=== PATIENT | male | born 1965 | race Caucasian/White ===

== ENCOUNTER → 2016-12-16 | Outpatient (CLI) | payer MEDICARE, OTHER ==
[2016-01-28 23:41] VITALS: BP 151/70
[~2016-12-16] MED LIST: ALLO100T PO; BACL10TA PO; DOCU100C PO; GABA-586 PO; INSU100V13 SQ; LISI1TAB7 PO; METH10TA2 PO; MOVANTIK12.5 MG PO; OXYC-244 PO; OXYC-323 PO; POLY17PO5 PO; PREG75CA PO; TRAZ50TA15 PO
--- NOTE | 2016-12-17 01:41 | PAIN ---
DATE OF SERVICE: 12/16/2016 DIAGNOSES: 1. Chronic pain syndrome. 2. Cervical spondylosis with cervical radiculopathy. 3. Complex regional pain syndrome, bilateral upper extremities. 4. Myofascial pain. 5. Occipital neuralgia with spinal cord stimulator, cervical placement. HISTORY OF PRESENT ILLNESS: The patient is a 51-year-old male who returns for followup status post medication management with both methadone and oxycodone for breakthrough. The patient is also taking Lyrica and baclofen with good results. The patient reports he has had some difficulty with recent weather changes that we have been having with some increased pain in the base of the neck and shoulder, it is also causing him some headaches and had an episode where he had pain for about 2 days where he had to do nothing but just lie still until the pain got better in the base of the neck and head and shoulders, but it did once the weather changed again. The patient reports otherwise doing fairly well with medications, overall about 70-75% improvement without significant side effects with the medications. Reports still stabbing and burning pain in the base of the neck and shoulders, upper extremity as well as the low back. Also some pain that he attributes to arthritis in the knees bilaterally as he has been increasing his activity more recently in the last week or so at home. The patient reports it is a 5-6 on a scale of 10, reports no new motor or sensory deficits, no new bowel or bladder incontinence or other complaints. PHYSICAL EXAMINATION: VITAL SIGNS: The patient's blood pressure 132/69, pulse 64, respirations 18, temperature 98.4 degrees Fahrenheit, weight is 331 pounds. GENERAL: The patient is awake, alert, oriented, appropriate, very pleasant demeanor. HEENT: Shows normocephalic and atraumatic. Extraocular movements are intact, symmetrical. Oral cavity: Mucous membranes are moist and pink. Dentition is intact. NECK: Shows anterior throat supple without palpable lymphadenopathy noted. Swallow reflex is symmetrical. CHEST: Shows normal on inspection. Breath sounds are clear to auscultation bilaterally. HEART: Shows S1 and S2 clear. No murmurs are auscultated. ABDOMEN: Obese, soft, nontender, nondistended. No palpable organomegaly is noted. No new rebound or guarding demonstrated. BACK: Shows grossly midline spine with some tenderness in the cervical paraspinous musculature bilaterally in the middle and upper distribution as well as lower distribution in the superior medial and lateral trapezius. No specific radiation, but diffusely tender throughout the cervical paraspinous muscles and the trapezius muscles superiorly. The patient shows some limited rotational motion, especially with extension of the cervical spine, but good forward flexion. Right and left lateral rotation is about 45 degrees without significant pain reported. No trigger points are demonstrated. No radiation of pain in the upper extremities. EXTREMITIES: Upper extremities showed deep tendon reflexes 1+ in the biceps and triceps tendons and are equal. Motor exam is strong with paint prepper strength rated at 5/5. Also, biceps and triceps flexion are strong and equal and 5/5 bilaterally. Peripheral pulses are 2+, radial distribution. Upper extremities are warm and dry to touch, equal in color and appearance. PLAN: Options were discussed with the patient. At this time, the patient's old chart was reviewed as his current medication regimen and updated. Current review of systems is updated today as well. We will refill the patient's methadone as well as oxycodone, Lyrica and baclofen with instructions and side effects to be aware of discussed with each of the medications. The patient reports good adequate use of the spinal cord stimulator and keeping this charged and he reports good results with it as well, again not completely covering 100% of the pain, but does decrease the pain to a moderate extent. The patient will follow up in approximately 60 days. He was given 2-month prescription for the medications and he will follow up at that time as scheduled. MANASA ABBOTT MD DR: NICHOLE/sagar JOB#: [id number] / [id number]
== END | disposition home or self-care (01) ==
LOC: PNCL 09:57
PROVIDERS: ATTEND Anesthesiology
DX: M47.22 Other spondylosis with radiculopathy, cervical region (principal); G89.4 Chronic pain syndrome; G56.43 Causalgia of bilateral upper limbs; M79.1 Myalgia; M54.81 Occipital neuralgia
CPT/HCPCS: G0463

== ENCOUNTER → 2017-02-10 | Outpatient (CLI) | payer MEDICARE, OTHER ==
[2016-01-28 23:41] VITALS: BP 151/70
[~2017-02-10] MED LIST changes: +POLY17PO29 PO; -POLY17PO5 PO
--- NOTE | 2017-02-11 03:56 | PAIN ---
DATE OF SERVICE: 02/10/2017 PROGRESS NOTE FOR PAIN CLINIC DIAGNOSES: 1. Chronic pain syndrome. 2. Cervical spondylosis with cervical radiculopathy. 3. Complex regional pain syndrome, bilateral upper extremities. 4. Myofascial pain. 5. Occipital neuralgia. The patient is a 51-year-old male who returns for followup status post medication management with both methadone and oxycodone. Also taking Lyrica and baclofen. The patient reports he is doing fairly well, has been on a fairly stable regimen with the medications for an extended period of time, does well with them day to day, anywhere from a 6 to a 9 on a scale of 10. He has been increasing activity, more recently doing some gardening as well as building a chicken coop, which has increased his pain to a moderate extent. He is having to pace himself and do these things very slowly, but he is getting them done and enjoys being outside and doing these things even though he knows it does exacerbate his pain. The patient reports no new motor or sensory deficits or other complaints. Has had appropriate K-TRACS reporting today as well as appropriate urinalysis today. PHYSICAL EXAMINATION: VITAL SIGNS: The patient's blood pressure is /75, pulse 67, respirations are 18, temperature 98.3 degrees Fahrenheit, height is 6 feet 4 inches, weight 328 pounds. GENERAL: The patient is awake, alert, oriented and appropriate, very pleasant demeanor. HEENT: Head is normocephalic, atraumatic. Extraocular movements are intact and symmetrical. Oral cavity, his mucous membranes are moist and pink. Dentition is intact. NECK: Anterior throat without palpable lymphadenopathy. Swallow reflex is symmetrical. Posterior cervical musculature is firm, very tight and diffusely tender throughout the upper, middle, lower distribution, mainly in the middle and lower distribution of the paraspinous muscles of cervical distribution with some minor radiation into the lateral and superior trapezius, but previous exam. The patient shows limited rotational motion with extension, with pain reported as well as right and left lateral rotation to about 45 degrees with pain reported. CHEST: Normal on inspection. Breath sounds are clear to auscultation bilaterally. HEART: S1, S2, clear. No murmurs auscultated. ABDOMEN: Obese, soft, nontender, nondistended. No palpable organomegaly is noted. BACK: Spine grossly in the midline with thoracic and lumbar paraspinous musculature and curvatures. Diffuse tenderness in the upper thoracic paraspinous muscles as well as the superior trapezius and suprascapular regions, but without trigger points or radiation. Options were discussed with the patient. The patient's old chart was reviewed and his current medication regimen updated. Current review of systems updated today as well. We will refill the patient's methadone as well as oxycodone, Lyrica and baclofen with instructions, side effects to be aware of , a 2-month prescription. The patient has had appropriate K-TRACS reporting and appropriate urinalysis to date. We will review those today, renew narcotic contract as it is due for renewal also. The patient was given a copy. Policies were gone over with the patient and spouse once again. They verbalized understanding. The patient will follow up in approximately 2 months as scheduled. MAANSA ABBOTT MD DR: NICHOLE/sagar JOB#: [id number] / [id number]
== END | disposition home or self-care (01) ==
LOC: PNCL 11:21
PROVIDERS: ATTEND Anesthesiology
DX: M47.892 Other spondylosis, cervical region (principal); G56.43 Causalgia of bilateral upper limbs; G89.4 Chronic pain syndrome; M79.1 Myalgia; M54.81 Occipital neuralgia
CPT/HCPCS: 99212

== ENCOUNTER → 2017-04-07 | Outpatient (CLI) | payer OTHER ==
[2016-01-28 23:41] VITALS: BP 151/70
[~2017-04-07] MED LIST changes: +DOCU-150 PO; -DOCU100C PO; -OXYC-244 PO; +OXYC-327 PO
== END | disposition home or self-care (01) ==
LOC: PNCL 11:26
PROVIDERS: ATTEND Anesthesiology
DX: M47.22 Other spondylosis with radiculopathy, cervical region (principal); G90.513 Complex regional pain syndrome I of upper limb, bilateral; M54.81 Occipital neuralgia; G89.4 Chronic pain syndrome
CPT/HCPCS: 99212

== ENCOUNTER → 2017-06-02 | Outpatient (CLI) | payer OTHER ==
[2016-01-28 23:41] VITALS: BP 151/70
--- NOTE | 2017-06-03 06:15 | PAIN ---
DATE OF SERVICE: 06/02/2017 DIAGNOSES: 1. Chronic pain syndrome. 2. Cervical spondylosis, cervical radiculopathy and complex regional pain syndrome, bilateral upper extremities. 3. Myofascial pain. 4. Occipital neuralgia. HISTORY OF PRESENT ILLNESS: The patient is a 52-year-old male who returns for followup status post medication management with both methadone and Percocet for breakthrough. The patient reports he has been doing very well with very stable regimen with medication with abduction about 80% improvement with the medications. The patient reports no side effects of the medication as well, reports he has been increasing his activity as he generally does with doing things around the house as well as bowling and yard work, but he knows that he will have increased pain with some of these activities, generally does not tolerate it fairly well, is doing well with his spinal cord stimulator with good cervical distribution, stimulation and good stimulation quality with good rechargeability with his generator by his report. The patient reports no new motor or sensory deficits, no new bowel or bladder incontinence, no new side effects with medication. The patient rates his pain as a 10 on a scale of 10, it is worse at 6 on a scale 10 currently, is averaging about a 8. The patient reports as aching, sharp, dull, tight, tingling, burning, stabbing, radiating, can be severely constant with activity. The patient reports he sleeps well at night; however, does not awaken him from sleep. PHYSICAL EXAMINATION: VITAL SIGNS: The patient's blood pressure 148/81, pulse is 69, temperature is 98.2 degrees Fahrenheit, respirations 20, height is 6 feet 4 inches and weight is 328 pounds. GENERAL: The patient is awake, alert, oriented, appropriate, has a very pleasant demeanor. The patient is accompanied by his spouse. HEENT: Shows normocephalic, atraumatic. Extraocular movements are intact, symmetrical. Oral cavity, mucous membranes are moist and pink. Dentition is intact. NECK: Shows anterior throat supple without palpable lymphadenopathy noted. Swallow reflex is symmetrical. The patient's posterior cervical musculature shows some moderate tenderness with palpation in the inferior aspect of the cervical paraspinous musculature bilaterally with diffuse tenderness, but only diffusely without significant radiation. CHEST: Shows normal on inspection. Breath sounds clear to auscultation bilaterally. HEART: Shows S1 and S2 clear. ABDOMEN: Obese, soft, nontender, nondistended. BACK: Shows spine grossly in the midline. Normal appearing thoracic kyphosis and lumbar lordotic curvatures. Upper extremity showed deep tendon reflexes at 2+ in the biceps and triceps tendons. Motor exam is strong with dorsiflexion, extension, quadriceps and hamstring flexion as well as university manager strength, biceps and triceps flexion rated at 5/5 and equal. Options were discussed with the patient. The patient's old chart was reviewed as his current medication regimen updated. Current review of systems updated today as well and we will refill the patient's oxycodone as well as methadone with instructions side effects to be aware of, Lyrica and baclofen as patient does well with each of these. The patient was given instruction as well as side effects to be aware of each of these medications. Also encouraged to increase activity as tolerated, maintain watchful maintenance on his spinal cord stimulator as it is nearing a 10-year period on battery, but is charging well and patient reports good and adequate stimulation from it. We will have the patient return in approximately 2 months or sooner if necessary, was counseled as to return appointment as well. MANASA ABBOTT MD DR: NICHOLE/sagar JOB#: [id number] / [id number]
== END | disposition home or self-care (01) ==
LOC: PNCL 11:23
PROVIDERS: ATTEND Anesthesiology
DX: M47.892 Other spondylosis, cervical region (principal); M54.81 Occipital neuralgia; G89.4 Chronic pain syndrome; G56.43 Causalgia of bilateral upper limbs
CPT/HCPCS: 99212

== ENCOUNTER → 2017-07-28 | Outpatient (CLI) | payer OTHER ==
[2016-01-28 23:41] VITALS: BP 151/70
--- NOTE | 2017-07-28 17:42 | PAIN ---
DATE OF SERVICE: 07/28/2017 DIAGNOSES: 1. Chronic pain syndrome. 2. Cervicalgia with cervical radiculopathy. 3. Complex regional pain syndrome, bilateral upper extremities. 4. Myofascial pain with spinal cord stimulator therapy. HISTORY OF PRESENT ILLNESS: The patient is a 52-year-old male who returns for followup status post medication management with both methadone and Percocet, also taking Lyrica as well as baclofen. The patient reports he has been on a very stable regimen with these medicines. He reports that lately he has been "doing too much" with his activities increasing his pain in the base of his neck, shoulders, upper back, mid back as well as lower extremities, but he realizes that this is part of a consequence of his increased activity and has some increased pain. The patient reports his spinal cord stimulator has been working very well and is having good coverage, but has not completely relieved the pain, more like about 50-60%. The patient reports overall has about 75-80% improvement with the medications and the stimulator without any significant side effects. The patient reports occasional constipation, but only rarely and seems to do better when he is better hydrated. The patient reports no new motor or sensory deficits, no new bowel or bladder incontinence or other complaints. He has been on a very stable regimen as noted. The patient reports pain is a 10 on a scale of 10 at its worst, is 7 on average and 5 at least and is 5 today. The patient reports aching, sharp, tight, shooting, stabbing, burning, tingling, radiating, constant and severe pain all with increased intensity with increased activity as he has been deer hunting lately target shooting with his , which has been stressful on his pain situation. PAST MEDICAL HISTORY: Significant for osteoarthritis, hypertension, knee arthroscopy, ____ and spinal cord stimulator implantation. ALLERGIES: THE PATIENT IS ALLERGIC TO PENICILLIN, TAPE, ERYTHROMYCIN, AMITRIPTYLINE. MEDICATIONS: Celebrex, Robaxin, metformin, fish oil, gemfibrozil, lisinopril, potassium, baclofen, methadone and Percocet. REVIEW OF SYSTEMS: Updated today and is positive for those items mentioned in the history of present illness. It is complete, full and well documented on the patient's chart. PHYSICAL EXAMINATION: VITAL SIGNS: The patient's blood pressure is 143/83, pulse is 83, respirations 20, temperature 98.3 degrees Fahrenheit. Height is 6 feet 4 inches, weight is 336 pounds. GENERAL: The patient is awake, alert, oriented, appropriate, has very pleasant demeanor. HEENT: Head shows normocephalic, atraumatic. Extraocular movements are intact and symmetrical. Oral cavity, his mucous membranes are moist and pink. Dentition is intact. NECK: Shows anterior throat supple without palpable lymphadenopathy noted. Swallow reflex is symmetrical. CHEST: Shows normal on inspection. Breath sounds are clear to auscultation bilaterally. HEART: Shows S1 and S2 clear. No murmurs auscultated. ABDOMEN: Obese, soft, nontender, nondistended. No palpable organomegaly is noted. No rebound or guarding demonstrated. BACK: Shows spine grossly midline. The patient shows well-healed surgical scars from spinal cord stimulator implantation in the upper thoracic and lower cervical distribution as well as palpable spinal cord stimulator. The patient shows good rotational motion of the cervical spine with some tenderness with extension, but not with forward flexion. Right and left lateral rotations performed past 45 degrees, closer to 90 degrees bilaterally. The patient's low back shows some mild tenderness with palpation, but normal appearing thoracic kyphosis and lumbar lordotic curvature. Diffusely tender again in the paraspinous muscles bilaterally, but without radiation. EXTREMITIES: Upper extremities showed deep tendon reflexes 1+ in the biceps and triceps tendons. Motor exam is strong with energy management specialist strength with approximately 4 on a scale of 5 bilaterally, but equal and biceps and triceps flexion is 5/5 and strong and equal bilaterally. Peripheral pulses are 2+ in radial distribution. No peripheral edema is noted. Lower extremities showed deep tendon reflexes 1+ in the patellar and tendo calcaneus tendons are equal. Motor exam is strong with 5/5 dorsiflexion, extension, quadriceps and hamstring flexion. Peripheral pulses are 1+ posterior tibial and dorsalis pedis. No peripheral edema is noted in the lower extremities as well. Options were discussed with the patient. The patient's old chart was reviewed as his current medication regimen updated. Current review of systems updated today as well. We will refill the patient's methadone as well as Percocet, baclofen and Lyrica with instructions, side effects to be aware of discussed with each of his medications. Again, the patient has been on good and stable regimen, has had appropriate K-TRACS reporting to date and appropriate urinalysis. We will recheck urinalysis to date for random screening. It has been several months since his last one. The patient accepts this willingly. The patient was counseled as to activity level as well as being cautious with activities, but staying active at the same time with some stretching and strengthening exercises as well as light walking and exercising. MANASA ABBOTT MD DR: NICHOLE/sagar JOB#: [id number] / [id number]
== END | disposition home or self-care (01) ==
LOC: PNCL 11:15
PROVIDERS: ATTEND Anesthesiology
DX: M54.12 Radiculopathy, cervical region (principal); Z88.0 Allergy status to penicillin; I10 Essential (primary) hypertension
CPT/HCPCS: 99212

== ENCOUNTER → 2017-09-22 | Outpatient (CLI) | payer OTHER ==
[2016-01-28 23:41] VITALS: BP 151/70
--- NOTE | 2017-09-23 00:15 | PAIN ---
DATE OF SERVICE: 09/22/2017 PROGRESS NOTE FOR PAIN CLINIC DIAGNOSES: 1. Chronic pain syndrome. 2. Cervicalgia with cervical radiculopathy. 3. Complex regional pain syndrome, bilateral upper extremities. 4. Myofascial pain. HISTORY OF PRESENT ILLNESS: The patient is a 52-year-old male who returns for followup status post medication management with both methadone, Percocet, baclofen as well as Lyrica. The patient reports he is doing very well with this, has been on a very stable regimen, he has been on these medications for an extended period of time now. The patient has had appropriate K-TRACS reporting as well as urinalyses to date. The patient reports his pain is approximately 75% improved with the medications. He has been increasing his activity lately. He has been doing some hunting trips, also working at his property with some moving and lifting heavy objects and climbing and descending hills with increased pain, but the patient also walked to his appointment today approximately 5 miles very slowly, but likes to stay active and tries to keep as active as he can even though the pain is increased with this. The patient reports the pain is an 8 on a scale of 10 at its worst, is an 8 on average, is a 7 at its least and is an 8 today. The patient reports it is aching, sharp tight stabbing, burning, tingling with radiating pain, constant, base of the neck, posterior occipital region, middle, upper and lower back as well as bilateral knees, bilateral ankles and hands with aching and deep pain as well. The patient reports spinal cord stimulator however is working very well ____ pain better by about a 70% margin as well and the medication helps decrease this on top of the stimulator. The patient reports he is awakening from sleep from the pain usually in his neck and shoulders about every 5 hours, but he can reposition and get back to sleep or take pain medication to get back to rest as well. The patient reports no new motor or sensory deficits. No new bowel or bladder incontinence or other complaints. PHYSICAL EXAMINATION: VITAL SIGNS: The patient's blood pressure 160/89, pulse 79, respirations 18, temperature 98.2 degrees Fahrenheit, height 6 feet 2 inches, weight is 339 pounds. GENERAL: The patient is awake, alert, oriented, appropriate, very pleasant demeanor. HEENT: Head shows normocephalic, atraumatic. Extraocular movements are intact, symmetrical. Oral cavity: Mucous membranes moist and pink. Dentition is intact. NECK: Shows anterior throat supple without palpable lymphadenopathy noted. Swallow reflex symmetrical. Posterior cervical musculature shows moderate tenderness throughout the upper, middle, lower distribution of paraspinous musculature, but is only diffusely tender without trigger points, without radiation. The patient shows some guarded rotational motion of cervical spine, both laterally as well as extension and flexion, but performances fully just slow and deliberate and guarded. CHEST: Shows normal on inspection. Breath sounds are clear to auscultation bilaterally. HEART: Shows S1, S2 clear. No murmurs auscultated. ABDOMEN: Soft, nontender, nondistended. No palpable organomegaly. No rebound or guarding demonstrated. MUSCULOSKELETAL: The patient's back shows spine grossly in the midline with some moderate tenderness of the trapezius as well as the thoracic paraspinous. Lumbar paraspinous muscle shows symmetrical with moderate tenderness throughout the upper, middle, lower distribution, but good rotational motion laterally as well as extension and flexion. No tenderness over the sacrum or sacroiliac regions. The patient's extremities show upper extremity deep tendon reflexes 2+ in the biceps and triceps tendons. Lower extremities are 1+ patellar and tendo calcaneus tendons. Motor exam is strong with management lecturer strength rated at 5/5. Lower extremities show dorsiflexion, extension at 5/5 and equal. Peripheral pulses are 2+ radial, 1+ posterior tibial. No peripheral edema is noted bilaterally in the upper or lower extremities. Options were discussed with the patient. The patient's old chart was reviewed as well as his current medication list was updated as was the patient's review of systems today. PLAN: We will refill the patient's methadone as well as Percocet and baclofen with instructions side effects to be aware of. The patient also will have new narcotic contract signed and given a copy of that today. The patient was given instruction as well as side effects to be aware of his medications. He will follow up in approximately 2 months. He was given a 60-day supply with instructions, side effects to be aware of. Again, the patient has had appropriate K-TRACS reporting as well as urinalyses to date and will follow up in approximately 2 months as scheduled. MANASA ABBOTT MD DR: Jasmina JOB#: [id number] / [id number]
== END | disposition home or self-care (01) ==
LOC: PNCL 12:23
PROVIDERS: ATTEND Anesthesiology
DX: G56.43 Causalgia of bilateral upper limbs (principal)
CPT/HCPCS: 99212

== ENCOUNTER → 2017-10-03 | Outpatient (CLI) | payer OTHER | END | disposition home or self-care (01) | LOC: PNCL 13:04 | DX: M54.12 Radiculopathy, cervical region (principal); M54.81 Occipital neuralgia | CPT/HCPCS: 99212 ==

== ENCOUNTER 2017-11-03 10:34 | Day surgery (SDC) | payer OTHER ==
[2017-11-03] MEDS: IV RINGERS,LACTATED 1000ML 1,000 ML IV (07:00)
[~2017-11-03 10:34] MED LIST changes: -ALLO100T PO; +BACITRACIN 50,000 UNIT in IV NORMAL SALINE 500ML BAG 500 ML IRR; -BACL10TA PO; -DOCU-150 PO; -GABA-586 PO; +HYDROmorphone 2 MG/ML VIAL IV; -INSU100V13 SQ; +LIDOCAINE 1% PF 2 ML VIAL. ID; -LISI1TAB7 PO; -METH10TA2 PO; +MORPHINE SULFATE 2 MG/ML DISP.SYRIN. IV; -MOVANTIK12.5 MG PO; -OXYC-323 PO; -OXYC-327 PO; -POLY17PO29 PO; -PREG75CA PO; +PROCHLORPERAZINE 10 MG/2 ML VIAL. IV; -TRAZ50TA15 PO; +fentaNYL PF VIAL 100 MCG/2 ML VIAL IV
[2017-11-03 11:16] LABS: ADD MAN DIFF? NO
[2017-11-03 11:18] LABS: BASO # 0.1 x10^3/uL (0.0-0.2); BASO % 1 % (0-3); EOS # 0.1 x10^3/uL (0.0-0.7); EOS % 2 % (0-3); HEMATOCRIT 41.4 % (39.0-53.0); HEMOGLOBIN 13.8 g/dL (13.0-17.5); LYMPH # 1.7 x10^3/uL (1.0-4.8); LYMPH % 23 % (24-48); MEAN CORPUSCULAR HEMOGLOBIN 29 pg (25-35); MEAN CORPUSCULAR HGB CONC 33 g/dL (31-37); MEAN CORPUSCULAR VOLUME 88 fL (79-100); MONO # 0.6 x10^3/uL (0.0-1.1); MONO % 8 % (0-9); NEUT # 4.9 x10^3uL (1.8-7.7); NEUT % 66 % (31-73); PLATELET COUNT 171 x10^3/uL (140-400); WHITE BLOOD COUNT 7.4 x10^3/uL (4.0-11.0)
[2017-11-03] MEDS ORDERED: PROPOFOL 20 ML IV ×2 (11:26→12:59)
[2017-11-03] MEDS ORDERED: SUCCINYLCHOLINE 200 MG/10 ML VIAL. (11:26)
[2017-11-03 11:36] LABS: ANION GAP 7 (6-14); BLOOD UREA NITROGEN 22 mg/dL (8-26); CARBON DIOXIDE 29 mmol/L (21-32); CHLORIDE 102 mmol/L (98-107); CREATININE 1.3 mg/dL (0.7-1.3); GFR 57.5; GLUCOSE 110 mg/dL (70-99); POTASSIUM 4.3 mmol/L (3.5-5.1); SODIUM 138 mmol/L (136-145)
[2017-11-03] MEDS ORDERED: MIDAZOLAM HCL/PF 2 MG/2 ML VIAL. ×2 (12:02→12:34)
[2017-11-03] MEDS ORDERED: fentaNYL PF VIAL 250 MCG/5 ML VIAL (12:33)
[2017-11-03] MEDS: BACITRACIN 50,000 UNIT in IV NORMAL SALINE 500ML BAG 500 ML IRR (12:39)
[2017-11-03] MEDS: LIDOCAINE 1%/EPI 1:100,000 20 ML VIAL. (12:39)
[2017-11-03] MEDS ORDERED: levoFLOXacin 500mg PREMIX 500 MG/100 ML BAG IV (13:00)
[2017-11-03 13:31] LABS: POC GLUCOSE 81 mg/dL (70-99)
== END 2017-11-03 14:23 | disposition home or self-care (01) ==
LOC: SURG 10:34
DX: G89.4 Chronic pain syndrome (principal); M54.12 Radiculopathy, cervical region; M96.1 Postlaminectomy syndrome, not elsewhere classified; G90.513 Complex regional pain syndrome I of upper limb, bilateral
CPT/HCPCS: 36415; 80048; 82962; 85025; C1769; C1820; J0330; J1956; J2250; J2704; J3010; J3490; J7040

== ENCOUNTER → 2017-11-10 | Outpatient (CLI) | payer OTHER | END | disposition home or self-care (01) | LOC: PNCL 09:32 | DX: M48.02 Spinal stenosis, cervical region (principal); G56.43 Causalgia of bilateral upper limbs; G89.4 Chronic pain syndrome | CPT/HCPCS: G0463 ==

== ENCOUNTER → 2017-12-08 | Outpatient (CLI) | payer OTHER | END | disposition home or self-care (01) | LOC: PNCL 10:22 | DX: M48.02 Spinal stenosis, cervical region (principal); G56.43 Causalgia of bilateral upper limbs | CPT/HCPCS: 99212 ==

== ENCOUNTER → 2018-02-02 | Outpatient (CLI) | payer OTHER | END | disposition home or self-care (01) | LOC: PNCL 10:46 | DX: M54.12 Radiculopathy, cervical region (principal); M79.1 Myalgia; G89.4 Chronic pain syndrome | CPT/HCPCS: 99212 ==

== ENCOUNTER → 2018-03-30 | Outpatient (CLI) | payer OTHER | END | disposition home or self-care (01) | LOC: PNCL 10:40 | DX: M54.12 Radiculopathy, cervical region (principal); M79.1 Myalgia; G89.4 Chronic pain syndrome; I10 Essential (primary) hypertension | CPT/HCPCS: 99212 ==

== ENCOUNTER → 2018-05-25 | Outpatient (CLI) | payer OTHER ==
[2017-11-03 14:18] VITALS: BP 137/61
[~2018-05-25] MED LIST changes: +ALLO100T PO; -BACITRACIN 50,000 UNIT in IV NORMAL SALINE 500ML BAG 500 ML IRR; +BACL10TA PO; +DOCU-150 PO; +GABA-586 PO; -HYDROmorphone 2 MG/ML VIAL IV; +INSU100V13 SQ; -LIDOCAINE 1% PF 2 ML VIAL. ID; +LISI1TAB7 PO; +METH10TA2 PO; -MORPHINE SULFATE 2 MG/ML DISP.SYRIN. IV; +MOVANTIK12.5 MG PO; +OXYC-323 PO; +OXYC-327 PO; +OXYC-328 PO; +POLY17PO29 PO; +PREG75CA PO; -PROCHLORPERAZINE 10 MG/2 ML VIAL. IV; +TEST200V3 IM; +TRAZ-85 PO; -fentaNYL PF VIAL 100 MCG/2 ML VIAL IV
--- NOTE | 2018-05-25 20:46 | PAIN ---
DATE OF SERVICE: 05/25/2018 PROGRESS NOTE TO THE PAIN CLINIC DIAGNOSES: 1. Chronic pain syndrome. 2. Cervicalgia with cervical radiculopathy. 3. Complex regional pain syndrome, bilateral upper extremities. 4. Myofascial pain. 5. Occipital neuralgia. HISTORY OF PRESENT ILLNESS: The patient is a 53-year-old male who returns for followup status post medication management as well as spinal cord stimulator, cervical placement for the above complaints. The patient reports doing well with medication regimen thus far, but still about a 70-75% improvement without significant side effects. The patient did have some constipation, but is taking Movantik which is doing much better and he is having some good relief with that. The patient reports still pain at the base of the neck and shoulders, upper back, especially between the shoulders with some radiating pain in the hands and arms, also the back of the skull occipital region as well as pain in the knees and feet. The patient reports pain in the upper back, neck and shoulders. It is aching, sharp, tight, shooting, stabbing, burning, tingling, radiating, constant, becoming more severe at times, worse with recent weather changes, we have had some stormy weather, it has made the pain much more exacerbated, but when the weather is better, the patient reports the pain decreases. He increased his activity with greater ease and comfort, walking greater distances, increase activity at home as well as recreational activity to a point where he was actually decreasing his pain medication usage until the weather changed. The patient reports pain is a 9 on a scale of 10 at its worst, on average 8, 6 at its least and is a 6 today. The patient reports no new motor or sensory deficits, no new changes. Good function of the stimulator with good paresthesia in the upper extremities and shoulders. PHYSICAL EXAMINATION: VITAL SIGNS: The patient's blood pressure is 139/78, pulse , respirations 16, temperature is 98.0 degrees Fahrenheit, 6 feet 4 inches, and weight is 345 pounds. GENERAL: The patient is awake, alert, oriented, appropriate, very pleasant demeanor. HEENT: Head shows normocephalic, atraumatic. Extraocular movements are intact and symmetrical. Oral Cavity: Mucous membranes moist and pink. Dentition is intact. NECK: Shows anterior throat supple without palpable lymphadenopathy noted. Swallow reflex symmetrical. CHEST: Shows normal with inspection. Breath sounds clear to auscultation bilaterally. HEART: Shows S1, S2 clear. No murmurs auscultated. ABDOMEN: Soft, nontender, nondistended. No palpable organomegaly. No rebound or guarding demonstrated. BACK: Shows spine grossly in the midline. The patient's neck shows some moderate tenderness with palpation throughout the upper, middle, lower distribution of paraspinous musculature without radiation, but significant diffuse tenderness throughout the upper, middle, lower distribution of paraspinous muscles posteriorly. The patient has good rotational motion with some limitation past about 45 degrees, right and left lateral rotation is some minor pain with extension, but not with forward flexion. The patient's upper back shows significant tenderness near the surgical scar in the upper thoracic distribution with radiation into the lateral aspect of the rhomboid, both right and left to about the level of the medial border of the scapula without specific trigger points, but with very significant tenderness with palpation throughout this region. EXTREMITIES: The patient's upper extremities show deep tendon reflexes at 2+ in the biceps, triceps tendons. Motor exam is strong with quality assurance analyst strength rated at 5/5 and equal. Peripheral pulses are 2+ radial distribution bilaterally. The patient has no specific discoloration of the upper extremities. No mottling, edema or cyanosis. PLAN: Options were discussed with the patient. The patient's old chart was reviewed as his current medication regimen updated. Current review of systems updated today as well. We will refill the patient's both methadone and oxycodone for a 2-month period. Also, the patient is taking Lyrica and baclofen. The patient was given instruction as well as side effects to be aware of each of the medications. He has had appropriate K-TRACS reporting as well as appropriate urinalysis to date and will have the patient refill for 2-month prescription, and then return in approximately 2 months or sooner if necessary. We did try a diclofenac patch today on the area between the shoulder blades to see if this may relieve some of the pain. The patient was given samples of this and if it is significantly improved and will call and inform us of such and will have him prescriptions of the same. MANASA ABBOTT MD DR: NICHOLE/sagar JOB#: [id number] / [id number]
== END | disposition home or self-care (01) ==
LOC: PNCL 10:46
PROVIDERS: ATTEND Anesthesiology
DX: M54.12 Radiculopathy, cervical region (principal); M54.81 Occipital neuralgia; G89.4 Chronic pain syndrome
CPT/HCPCS: 99212

== ENCOUNTER → 2018-07-20 | Outpatient (CLI) | payer OTHER ==
[2017-11-03 14:18] VITALS: BP 137/61
--- NOTE | 2018-07-21 00:11 | PAIN ---
DATE OF SERVICE: 07/20/2018 DIAGNOSES: 1. Chronic pain syndrome. 2. Cervicalgia with cervical radiculopathy. 3. Complex regional pain syndrome, bilateral upper extremities. 4. Myofascial pain. 5. Occipital neuralgia. HISTORY OF PRESENT ILLNESS: The patient is a 53-year-old male who returns for followup status post medication management with both methadone and oxycodone, also Lyrica and baclofen. The patient reports he is doing fairly well, has been on fairly stable regimen with the medications. No significant side effects. He has had some increased pain over the last week secondary to some rainy weather that we have been experiencing. Other than that fortunately he is essentially at baseline, stimulator is still functioning well and getting good paraesthesia into the upper extremities and neck and shoulders. He has significant pain in the posterior aspect of the head in the occipital region, which has been present despite the weather and present for about 2-1/2 months or so. The patient reports it does awaken him from sleep at night, he is having difficulty with the headache mostly in the posterior aspect of the occiput and sometime into the parietal aspect of the top of the head as well. The patient reports it is an aching, sharp, dull, shooting, stabbing, tingling, burning, radiating, becoming more severe, more constant. The patient reports it is anywhere from 7-10 on a scale of 10 on an average at worst, 10 at its least and is 7 today. The patient reports no new motor or sensory deficits, no new side effects. Again, stimulator working well, he is keeping it charged on a regular basis. PHYSICAL EXAMINATION: VITAL SIGNS: The patient's blood pressure 144/69, pulse 72, respirations are 20, temperature is 98.2 degrees Fahrenheit, height is 74 inches, weight is 342 pounds. GENERAL: The patient is awake, alert, oriented, appropriate, very pleasant demeanor. HEENT: Head shows normocephalic and atraumatic. Extraocular movements are intact and symmetrical. Oral cavity: Mucous membranes moist and pink. Dentition is intact. NECK: Shows anterior throat supple without palpable lymphadenopathy noted. Swallow reflex is symmetrical. Neck shows some limited motion with extension secondary to pain as well as with forward flexion, but right and left lateral rotation is performed with some guarding the past 45 degrees right and left without significant impairment. CHEST: Shows normal with inspection. Breath sounds are clear to auscultation bilaterally. HEART: Shows S1, S2 clear. No murmurs auscultated. ABDOMEN: Obese, soft, nontender, nondistended. BACK: Shows spine grossly in the midline, some flattening of cervical lordotic curvature as well as some increased thoracic kyphotic curvature, normal appearing lumbar lordotic curvature. Cervical paraspinous musculature again with some moderate tenderness to palpation diffusely bilaterally, but without significant radiation, without trigger points. EXTREMITIES: Upper extremities show deep tendon reflexes 2+ in the biceps and triceps tendons. Motor exam is strong with line servicer strength rated at 5/5 as is bicep and tricep flexion and symmetrical. Peripheral pulses are 2+ radial distribution bilaterally. No peripheral edema is noted. ASSESSMENT AND PLAN: Options were discussed with the patient. The patient's old chart was reviewed as was the current medication regimen updated. Current review of systems updated today as well. We will refill the patient's methadone as well as Percocet, Lyrica, baclofen with instructions and side effects to be aware of for a 2-month period. The patient has had appropriate K-TRACS reporting as well as appropriate urinalysis to date. The patient will return to clinic. Prior to that, we discussed bilateral occipital nerve block, which may benefit with the occipital neuralgia and occipital headaches. The patient would like to pursue this. We will check with his worker's comp provider and get preauthorization prior to this and plan on having him return once this is approved for bilateral occipital nerve blocks at that time with significant occipital neuralgia and occipital headaches. MANASA ABBOTT MD DR: NICHOLE/sagar JOB#: [id number] / [id number]
== END | disposition home or self-care (01) ==
LOC: PNCL 10:40
PROVIDERS: ATTEND Anesthesiology
DX: G89.4 Chronic pain syndrome (principal); M54.12 Radiculopathy, cervical region; M79.18 Myalgia, other site; M54.81 Occipital neuralgia; J44.9 Chronic obstructive pulmonary disease, unspecified; G47.30 Sleep apnea, unspecified; E66.9 Obesity, unspecified; E11.9 Type 2 diabetes mellitus without complications; Z79.4 Long term (current) use of insulin; Z79.899 Other long term (current) drug therapy
CPT/HCPCS: 99212

== ENCOUNTER → 2018-08-14 | Outpatient (CLI) | payer OTHER ==
[2017-11-03 14:18] VITALS: BP 137/61
[~2018-08-14] MED LIST changes: +BUPIVACAINE MPF 0.25% 10 ML VIAL. ONE; +methylPREDNISolone ACETATE 40 MG/ML VIAL. ONE
--- NOTE | 2018-08-15 01:10 | PAIN ---
DATE OF SERVICE: 08/14/2018 DIAGNOSES: 1. Chronic pain. 2. Cervicalgia with cervical radiculopathy. 3. Complex regional pain syndrome, bilateral upper extremities. 4. Myofascial pain. 5. Occipital neuralgia. HISTORY OF PRESENT ILLNESS: The patient is a 53-year-old male who returns for followup status post medication management, but also with significant headaches. We discussed on his last visit, which was on 07/20/2018 and had been preauthorized with his worker's compensation insurance for bilateral occipital nerve blocks. The patient would like to proceed with this, still significant headache mostly posterior and occipital region, radiating posteriorly into the parietal and superiorly into parietal region of the head, also some pain in the base of the neck as well. The patient reports his headache is getting worse, is 8 on a scale of 10, is 7 on average, is 6 at its least and is a 7 today. The patient reports no new motor or sensory deficits, no side effects with his medication. Also reports multiple joint pains with recent cooler weather that we have. PHYSICAL EXAMINATION: VITAL SIGNS: Today, the patient's blood pressure is 182/94, pulse 67, respirations are 18, temperature is 97.7 degrees Fahrenheit. Height is 74 inches, weight is 346 pounds. GENERAL: The patient is awake, alert, oriented, appropriate, very pleasant demeanor. HEENT: Head is normocephalic, atraumatic. Extraocular movements are intact, symmetrical. Oral cavity: Mucous membranes moist and pink. Dentition is intact. NECK: Shows anterior throat supple without palpable lymphadenopathy noted. Swallow reflex is symmetrical. CHEST: Shows normal with inspection. Breath sounds clear to auscultation bilaterally. HEART: Shows S1, S2 clear. No murmurs auscultated. ABDOMEN: Soft, nontender, nondistended. No palpable organomegaly is noted. No rebound or guarding demonstrated. BACK: Shows spine grossly in the midline. Back shows some slight flattening of cervical lordotic curvature as well as the lumbar lordotic curvature. Thoracic curvature appears normal in curvature and kyphotic curvature, that is, the patient's scalp, shows some moderate tenderness with palpation over the posterior protuberance, occipital, as well as over the nuchal ridge posteriorly bilaterally without significant radiation. ASSESSMENT AND PLAN: Options were discussed with the patient. The patient's old chart was reviewed as his current medication regimen updated. Current review of systems updated as well and we will proceed with bilateral greater and lesser occipital nerve block. Risks were discussed including, but not limited to bleeding, infection, possibility of intravascular injection sequelae, spread of local anesthetic and numbness, side effects of steroid medication and poor results regarding pain control. The patient understands and wished to proceed. The patient will return to clinic in approximately 4 weeks or sooner if necessary. The patient was counseled as to activity level, as well as medication regimen and side effects to be aware of. DIAGNOSIS: Bilateral occipital neuralgia. PROCEDURE: Bilateral greater and lesser occipital nerve blocks using local anesthetic under sterile prep and drape. MEDICATION INJECTED: A total of 40 mg Depo-Medrol, 20 mg per side, and total of 5 mL per side and 10 total, 0.25% bupivacaine after negative aspiration at each site. CONDITION AT DISCHARGE: Stable. The patient tolerated the procedure well, had no complications. MANASA ABBOTT MD DR: NICHOLE/nts JOB#: [id number] / [id number]
== END | disposition home or self-care (01) ==
LOC: PNCL 13:43
PROVIDERS: ATTEND Anesthesiology
DX: G90.513 Complex regional pain syndrome I of upper limb, bilateral (principal); J44.9 Chronic obstructive pulmonary disease, unspecified; G89.4 Chronic pain syndrome; E66.9 Obesity, unspecified; M54.12 Radiculopathy, cervical region; J45.909 Unspecified asthma, uncomplicated; F17.210 Nicotine dependence, cigarettes, uncomplicated; E11.9 Type 2 diabetes mellitus without complications; G47.30 Sleep apnea, unspecified; Z79.4 Long term (current) use of insulin; Z79.899 Other long term (current) drug therapy; Z98.890 Other specified postprocedural states
CPT/HCPCS: 64405; J1030; J3490

== ENCOUNTER → 2018-09-17 | Outpatient (CLI) | payer OTHER ==
[2017-11-03 14:18] VITALS: BP 137/61
[~2018-09-17] MED LIST changes: -BUPIVACAINE MPF 0.25% 10 ML VIAL. ONE; -GABA-586 PO; +GABA300C18 PO; -OXYC-323 PO; -OXYC-327 PO; -OXYC-328 PO; +OXYC1TAB15 PO; +OXYC1TAB19 PO; +OXYC1TAB22 PO; -methylPREDNISolone ACETATE 40 MG/ML VIAL. ONE
--- NOTE | 2018-09-18 01:45 | PAIN ---
DATE OF SERVICE: 09/17/2018 DIAGNOSES: 1. Chronic pain syndrome. 2. Cervicalgia with cervical radiculopathy. 3. Complex regional pain syndrome, bilateral upper extremities. 4. Myofascial pain. 5. Occipital neuralgia. HISTORY OF PRESENT ILLNESS: The patient is a 53-year-old male who returns for followup status post spinal cord stimulator and cervical implant, as well as medication management with Percocet and methadone, also the patient taking Lyrica and baclofen. The patient reports he is doing very well with this, has been on very stable regimen, increased pain with some colder weather recently in the last few weeks, but otherwise has been doing fairly well, fairly steady with his medications and reduction of pain by about 70% without side effects. The patient reports still some stinging pain in the base of the neck and shoulders, especially with reaching forward. We did have him for occipital nerve blocks on 08/14. The patient reports decreased headaches significantly, but his blood sugar was elevated quite a bit afterwards and he had some difficulty sleeping from the steroid injection at that time, although his headache significantly reduced by about 80%. The patient reports no new motor or sensory deficits, no new findings, no new side effects with medication. The patient rates his pain as an 8-9 on a scale of 10 at its worst, 7-8 on average, 6-7 at its least, and is 7 today. The patient reports it is aching, sharp, dull, shooting, stabbing, tingling, burning, it is not radiating, it is not constant, severe, worse with activity, using his neck in a fixed position such as looking down at his phone or the tablet or reading and the pain is exacerbated after this for greater than about 30 minutes. The patient reports no new motor or sensory deficits, no bowel or bladder incontinence and again, no side effects with medications. PHYSICAL EXAMINATION: VITAL SIGNS: Today, the patient's blood pressure is 146/88, pulse 68, respirations 18, temperature 97.9 degrees Fahrenheit, height is 6 feet 2 inches, weight is 345 pounds. GENERAL: The patient is awake, alert, oriented, appropriate, very pleasant demeanor. HEENT: Shows normocephalic, atraumatic. Extraocular movements are intact and symmetrical. Oral cavity: Mucous membranes moist and pink. Dentition is intact. NECK: Shows anterior throat supple without palpable lymphadenopathy noted. Swallow reflex is symmetrical. CHEST: Shows normal with inspection. Breath sounds are clear to auscultation bilaterally. HEART: Shows S1, S2 clear. No murmurs auscultated. ABDOMEN: Obese, soft, nontender, nondistended. No palpable organomegaly is noted. No rebound or guarding demonstrated. BACK: The patient's back shows spine grossly in the midline. Slight exaggeration of thoracic kyphosis, mild flattening of cervical lordotic curvature and lumbar lordotic curvature. The patient's cervical paraspinous muscle shows symmetrical on inspection, on palpation shows some moderate tenderness throughout and some significantly tenderness even closer to severe tenderness in the inferior aspect of the cervical paraspinous musculature bilaterally in the superior aspect of the thoracic paraspinous muscles, as well as the trapezius bilaterally without specific trigger points or radiation. The patient has good rotational motion, however, of the cervical spine, both laterally, as well as extension and flexion without significant increase in pain. The patient's low back shows symmetrical on inspection as well. With palpation shows some moderate tenderness in the lumbar paraspinous muscles bilaterally, but only diffusely. Again, the patient has good rotational motion of the lumbar spine, both laterally greater than 10 degrees, extension greater than 10 degrees, forward flexion 45 degrees without exacerbation of significant pain. EXTREMITIES: The patient's extremities show upper extremity deep tendon reflexes at 2+ in the biceps, triceps tendons. Motor exam is strong with pipe fitter marine strength rated at 5/5, bicep and tricep flexion approximately 4/5 and equal. Lower extremities show deep tendon reflexes 1+, patellar and tendo calcaneus tendons. Motor exam is 5/5 with dorsiflexion, extension, quadriceps, and hamstring flexion and symmetrical. Peripheral pulses are 2+ radial, 1+ posterior tibial. No edema for lower extremities. ASSESSMENT AND PLAN: Options were discussed with the patient. The patient's old chart was reviewed, as well as his current medication regimen updated. Current review of systems updated today as well. We will proceed to refill the patient's medications today for 2 months. The patient has had appropriate K-TRACS reporting, as well as appropriate urinalysis to date and the patient was given instruction, as well as side effects to be aware of with medications. Follow up in approximately 2 months or sooner as necessary. MANASA ABBOTT MD DR: Jasmina JOB#: [id number] / [id number]
== END | disposition home or self-care (01) ==
LOC: PNCL 10:58
PROVIDERS: ATTEND Anesthesiology
DX: M54.12 Radiculopathy, cervical region (principal); M54.81 Occipital neuralgia; M79.18 Myalgia, other site; G89.4 Chronic pain syndrome
CPT/HCPCS: G0463

== ENCOUNTER → 2018-11-12 | Outpatient (CLI) | payer OTHER ==
[2017-11-03 14:18] VITALS: BP 137/61
[~2018-11-12] MED LIST changes: +LIRA0.6P2 SQ
--- NOTE | 2018-11-12 19:02 | PAIN ---
DATE OF SERVICE: 11/12/2018 DIAGNOSES: 1. Chronic pain. 2. Cervicalgia with cervical radiculopathy. 3. Complex regional pain syndrome, bilateral upper extremities. 4. Myofascial pain. 5. Occipital neuralgia. HISTORY OF PRESENT ILLNESS: The patient is a 53-year-old male who returns for a followup status post medication management both with methadone and oxycodone. Also, the patient is taking Lyrica and Movantik for constipation. The patient reports doing very well and is on a very stable regimen with medication thus far. Pain is decreased significantly with the methadone and Percocet. Constipation controlled with the Movantik. The patient reports he feels Lyrica decreased some of the burning pain he is having in the upper extremities as well. He still complains of pain in the base of the neck, posterior occipital region radiating to bilateral upper extremities, essentially equal right and left. The patient describes it is aching, sharp, dull, shooting, tight, stabbing, burning, tingling, constant and radiating; worse with activity as he has been active recently. We have had some warmer weather in the last few days and he was active over the last few days which increased his pain to a moderate extent, but the patient reports it is nothing, he did not expect and is doing fairly well with the pain now with the medications help. The patient reports no side effects other than constipation, which is controlled with Movantik. Describes about a 70-80% improvement overall with the medication. The patient reports he sleeps fairly well at night but every 4 hours, he is awake but generally not because of the pain. The patient reports no new motor or sensory deficits, no new changes, has good coverage with the stimulator which is keeping charged with good paresthesia in the upper extremities. PHYSICAL EXAMINATION: VITAL SIGNS: The patient's blood pressure 148/75, pulse is 73, respirations are 14, temperature 98.2 degrees Fahrenheit, height is 6 feet 2 inches, weight 346 pounds. GENERAL: The patient is awake, alert, oriented, appropriate, very pleasant demeanor. HEENT: Shows normocephalic, atraumatic. Extraocular movements are intact and symmetrical. Oral cavity shows mucous membranes moist and pink. Dentition is intact. NECK: Shows anterior throat supple without palpable lymphadenopathy noted. Swallow reflex is symmetrical. CHEST: Shows normal with inspection. Breath sounds clear to auscultation bilaterally. HEART: Shows S1, S2 clear. No murmurs auscultated. ABDOMEN: Soft, obese, nontender, nondistended. No palpable organomegaly is noted. No rebound or guarding demonstrated. MUSCULOSKELETAL: Back shows spine grossly in the midline with normal appearing thoracic kyphosis, some minor flattening of the lumbar lordotic curvature, previously well-healed surgical scar noted in the cervical distribution. Stimulator is easily palpable with stimulator battery, which is nontender. Lumbar spine shows symmetrical paraspinous musculature without radiation on palpation. Upper extremities show deep tendon reflexes at 1+ in the biceps and triceps tendons. Motor exam is strong with promotion producer strength rated at 5/5 as is bicep and tricep flexion and is symmetrical. Peripheral pulses are 1+ in the radial distribution bilaterally without any edema. PLAN: Options were discussed with the patient. The patient's old chart was reviewed as his current medication regimen and updated. Current review of systems updated today as well. We will refill the patient's methadone as well as Percocet with instructions, side effects to be aware of; also Lyrica, Movantik with instructions, side effects to be discussed with all of the medications. Again, the patient has had appropriate K-TRACS reporting as well as appropriate urinalysis to date. We will have a urinalysis today as a routine screening and renew the patient's narcotic contract as well. He will be given a copy of this also. The patient will follow up in approximately 2 months as scheduled or sooner if necessary. MANASA ABBOTT MD DR: NICHOLE/sagar JOB#: [id number] / [id number]
== END | disposition home or self-care (01) ==
LOC: PNCL 10:55
PROVIDERS: ATTEND Anesthesiology
DX: M54.12 Radiculopathy, cervical region (principal); G90.513 Complex regional pain syndrome I of upper limb, bilateral; M79.18 Myalgia, other site; M54.81 Occipital neuralgia
CPT/HCPCS: G0463

== ENCOUNTER → 2018-12-05 | Outpatient (CLI) | payer MEDICARE, OTHER ==
[2017-11-03 14:18] VITALS: BP 137/61
[~2018-12-05] MED LIST changes: +TRAZ-118 PO; -TRAZ-85 PO
== END | disposition home or self-care (01) ==
LOC: PMGWOUND 09:56
PROVIDERS: ATTEND Preventive Medicine Undersea and Hyperbaric Medicine
DX: E11.622 Type 2 diabetes mellitus with other skin ulcer (principal); L97.212 Non-pressure chronic ulcer of right calf with fat layer exposed; I87.2 Venous insufficiency (chronic) (peripheral); M10.9 Gout, unspecified; E66.9 Obesity, unspecified; Z79.4 Long term (current) use of insulin; Z68.41 Body mass index [BMI] 40.0-44.9, adult; Z87.891 Personal history of nicotine dependence
CPT/HCPCS: 97597

== ENCOUNTER → 2018-12-14 | Outpatient (CLI) | payer MEDICARE, OTHER ==
[2017-11-03 14:18] VITALS: BP 137/61
== END | disposition home or self-care (01) ==
LOC: PMGWOUND 09:23
PROVIDERS: ATTEND Preventive Medicine Undersea and Hyperbaric Medicine
DX: E11.622 Type 2 diabetes mellitus with other skin ulcer (principal); L97.212 Non-pressure chronic ulcer of right calf with fat layer exposed; I87.2 Venous insufficiency (chronic) (peripheral); M10.9 Gout, unspecified; E66.01 Morbid (severe) obesity due to excess calories; Z68.41 Body mass index [BMI] 40.0-44.9, adult; Z87.891 Personal history of nicotine dependence; Z79.4 Long term (current) use of insulin
CPT/HCPCS: 11042

== ENCOUNTER → 2018-12-21 | Outpatient (CLI) | payer MEDICARE, OTHER ==
[2017-11-03 14:18] VITALS: BP 137/61
== END | disposition home or self-care (01) ==
LOC: PMGWOUND 10:10
PROVIDERS: ATTEND Preventive Medicine Undersea and Hyperbaric Medicine
DX: E11.622 Type 2 diabetes mellitus with other skin ulcer (principal); L97.212 Non-pressure chronic ulcer of right calf with fat layer exposed; M10.9 Gout, unspecified; I87.2 Venous insufficiency (chronic) (peripheral); E66.01 Morbid (severe) obesity due to excess calories; Z68.41 Body mass index [BMI] 40.0-44.9, adult; Z79.4 Long term (current) use of insulin; Z87.891 Personal history of nicotine dependence
CPT/HCPCS: 99214; G0463

== ENCOUNTER → 2018-12-21 | Outpatient (CLI) | payer MEDICARE, OTHER ==
[2017-11-03 14:18] VITALS: BP 137/61
--- NOTE | 2018-12-21 13:31 | RAD ---
EXAM: Right lower extremity venous Doppler sonogram; right lower extremity arterial Doppler sonogram; right lower extremity ankle-brachial index. HISTORY: Nonhealing wound. TECHNIQUE: Ayers scale and color Doppler sonographic evaluation of the right lower extremity veins and arteries with spectral waveform analysis was performed. Pressure readings were assessed. FINDINGS: There is a right calf mortgage or loan underwriter vein measuring 2.2 mm in caliber up 24 cm and back 3 cm. The right greater saphenous vein measures 7.6 mm at the level of the junction and is not reflux. The right greater saphenous vein measures 4.3 mm within its proximal aspect and the right lesser saphenous vein measures 2.2 mm within its proximal aspect. No reflux is seen. There are triphasic waveforms throughout the right lower extremity arteries, with nonvisualization of the right peroneal artery. There are normal peak systolic velocities within the right lower extremity arteries. Right brachial pressure: 143 mmHg Left brachial pressure: 138 mmHg Right ankle pressure (dorsalis pedis artery): 145 mmHg Right ankle pressure (posterior tibial artery): 148 mmHg Right HEATHER: 1.03 IMPRESSION: 1. Normal right ankle-brachial index. 2. No Doppler evidence of hemodynamically significant stenosis within the visualized right lower extremity arteries. The right peroneal artery is not seen. 3. Small right calf mortgage or loan underwriter vein measuring 2.2 cm in caliber with reflux described above. Electronically signed by: Morelia Alaniz MD (12/21/2018 1:28 PM) [email or web address]
--- NOTE | 2018-12-21 13:31 | RAD ---
EXAM: Right lower extremity venous Doppler sonogram; right lower extremity arterial Doppler sonogram; right lower extremity ankle-brachial index. HISTORY: Nonhealing wound. TECHNIQUE: Ayers scale and color Doppler sonographic evaluation of the right lower extremity veins and arteries with spectral waveform analysis was performed. Pressure readings were assessed. FINDINGS: There is a right calf hair sample matcher vein measuring 2.2 mm in caliber up 24 cm and back 3 cm. The right greater saphenous vein measures 7.6 mm at the level of the junction and is not reflux. The right greater saphenous vein measures 4.3 mm within its proximal aspect and the right lesser saphenous vein measures 2.2 mm within its proximal aspect. No reflux is seen. There are triphasic waveforms throughout the right lower extremity arteries, with nonvisualization of the right peroneal artery. There are normal peak systolic velocities within the right lower extremity arteries. Right brachial pressure: 143 mmHg Left brachial pressure: 138 mmHg Right ankle pressure (dorsalis pedis artery): 145 mmHg Right ankle pressure (posterior tibial artery): 148 mmHg Right HEATHER: 1.03 IMPRESSION: 1. Normal right ankle-brachial index. 2. No Doppler evidence of hemodynamically significant stenosis within the visualized right lower extremity arteries. The right peroneal artery is not seen. 3. Small right calf hair sample matcher vein measuring 2.2 cm in caliber with reflux described above. Electronically signed by: Morelia Alaniz MD (12/21/2018 1:28 PM) [id number]
--- NOTE | 2018-12-21 13:31 | RAD ---
EXAM: Right lower extremity venous Doppler sonogram; right lower extremity arterial Doppler sonogram; right lower extremity ankle-brachial index. HISTORY: Nonhealing wound. TECHNIQUE: Ayers scale and color Doppler sonographic evaluation of the right lower extremity veins and arteries with spectral waveform analysis was performed. Pressure readings were assessed. FINDINGS: There is a right calf director teen post vein measuring 2.2 mm in caliber up 24 cm and back 3 cm. The right greater saphenous vein measures 7.6 mm at the level of the junction and is not reflux. The right greater saphenous vein measures 4.3 mm within its proximal aspect and the right lesser saphenous vein measures 2.2 mm within its proximal aspect. No reflux is seen. There are triphasic waveforms throughout the right lower extremity arteries, with nonvisualization of the right peroneal artery. There are normal peak systolic velocities within the right lower extremity arteries. Right brachial pressure: 143 mmHg Left brachial pressure: 138 mmHg Right ankle pressure (dorsalis pedis artery): 145 mmHg Right ankle pressure (posterior tibial artery): 148 mmHg Right HEATHER: 1.03 IMPRESSION: 1. Normal right ankle-brachial index. 2. No Doppler evidence of hemodynamically significant stenosis within the visualized right lower extremity arteries. The right peroneal artery is not seen. 3. Small right calf director teen post vein measuring 2.2 cm in caliber with reflux described above. Electronically signed by: Morelia Alaniz MD (12/21/2018 1:28 PM) [facility]
== END | disposition home or self-care (01) ==
LOC: US 12:00
PROVIDERS: ATTEND Preventive Medicine Undersea and Hyperbaric Medicine
DX: E11.622 Type 2 diabetes mellitus with other skin ulcer (principal); L97.212 Non-pressure chronic ulcer of right calf with fat layer exposed
CPT/HCPCS: 93922; 93926; 93971

== ENCOUNTER → 2018-12-31 | Outpatient (CLI) | payer MEDICARE, OTHER ==
[2017-11-03 14:18] VITALS: BP 137/61
== END | disposition home or self-care (01) ==
LOC: PMGWOUND 10:11
PROVIDERS: ATTEND Emergency Medicine Undersea and Hyperbaric Medicine
DX: E11.622 Type 2 diabetes mellitus with other skin ulcer (principal); L97.212 Non-pressure chronic ulcer of right calf with fat layer exposed; M10.9 Gout, unspecified; I87.2 Venous insufficiency (chronic) (peripheral); E66.01 Morbid (severe) obesity due to excess calories; Z68.41 Body mass index [BMI] 40.0-44.9, adult; Z79.4 Long term (current) use of insulin; Z87.891 Personal history of nicotine dependence
CPT/HCPCS: 29581

== ENCOUNTER → 2019-01-04 | Outpatient (CLI) | payer MEDICARE, OTHER ==
[2017-11-03 14:18] VITALS: BP 137/61
== END | disposition home or self-care (01) ==
LOC: PMGWOUND 10:44
PROVIDERS: ATTEND Preventive Medicine Undersea and Hyperbaric Medicine
DX: E11.622 Type 2 diabetes mellitus with other skin ulcer (principal); L97.212 Non-pressure chronic ulcer of right calf with fat layer exposed; I87.2 Venous insufficiency (chronic) (peripheral); M10.9 Gout, unspecified; E66.01 Morbid (severe) obesity due to excess calories; Z68.41 Body mass index [BMI] 40.0-44.9, adult; Z79.4 Long term (current) use of insulin; Z87.891 Personal history of nicotine dependence
CPT/HCPCS: 29581; 97597

== ENCOUNTER → 2019-01-07 | Outpatient (CLI) | payer OTHER ==
[2017-11-03 14:18] VITALS: BP 137/61
--- NOTE | 2019-01-08 04:39 | PAIN ---
DATE OF SERVICE: 01/07/2019 PROGRESS NOTE FOR PAIN CLINIC DIAGNOSES: 1. Chronic pain syndrome. 2. Cervicalgia with cervical radiculopathy. 3. Complex regional pain syndrome, bilateral upper extremities. 4. Myofascial pain. 5. Occipital neuralgia. HISTORY OF PRESENT ILLNESS: The patient is a 53-year-old male who returns for followup status post medication management with both methadone and oxycodone, still taking Movantik and Lyrica with good results. The patient reports a good steady pain control with the current regimen with about a 75% improvement overall and has been this way for extended period of time. The patient reports he increased his activity. He does have about a day or two where he is having to decrease his activity because the pain is increased. He has been building a dog run at home as well as the [employer] and has been very active lately, but again after 1 or 2 days of increased activity, he has 1-2 days of decreased activity because of pain. The patient reports otherwise no new motor or sensory deficits, no side effects with the medication except for some constipation, which has helped with Movantik. The patient reports the pain is in the base of the neck and shoulders, also the back of the head, mid back, low back and into the upper extremities as well as lower extremities, aching, sharp, dull, tight, shooting, cramping, stabbing, burning, sometimes constant with activity and radiating in the shoulders and arms as well as the low back and legs. The patient reports the pain is a 7 at its worst, 6 on average and a 5 at its least and is a 5 today. The patient reports no new motor or sensory deficits, no new changes, better with sleeping, been sleeping well, does awaken with headaches occasionally over the last week or so. Otherwise, doing fairly well. The patient does have a wound on his right leg, which he obtained at home when he was doing some of his activities and is being treated with wound care management right now as well. PHYSICAL EXAMINATION: VITAL SIGNS: The patient's blood pressure is 121/96, pulse 68, respirations 18, temperature is 98.0 degrees Fahrenheit, height is 6 feet 2 inches, weight 344 pounds. GENERAL: The patient is awake, alert, oriented, appropriate, very pleasant demeanor. HEENT: Head is normocephalic, atraumatic. Extraocular muscles are intact and symmetrical. Oral cavity: Mucous membranes moist and pink. Dentition is intact. NECK: Shows anterior throat is supple without palpable lymphadenopathy noted. Swallow reflex symmetrical. CHEST: Shows normal with inspection. Breath sounds clear to auscultation bilaterally. HEART: Shows S1, S2 clear. No murmurs auscultated. ABDOMEN: Obese, soft, nontender, nondistended. No palpable organomegaly is noted. No rebound or guarding demonstrated. BACK: Shows spine grossly in the midline. Cervical paraspinous muscle shows symmetrical on inspection, but very firm with palpation and tender with palpation throughout the upper, middle, lower distribution of the paraspinous musculature into the superior medial and lateral trapezius as well. Very firm and tender diffusely bilaterally, again only moderately tender. The patient shows no radiation of pain, no trigger points on inspection today. The patient has good rotational motion, somewhat limited posteriorly with extension, but not with forward flexion. Right and left lateral rotation is performed at 45 degrees with some minor pain reported in the base of the neck on both sides, right and left with these maneuvers. The patient's mid back and lower back shows normal thoracic kyphosis and lumbar lordotic curvature. Lumbar paraspinous muscle shows some moderate tenderness in the low lumbar distribution, but only diffusely without radiation. The patient has good rotational motion of lumbar spine as well, both laterally greater than 10 degrees right and left as well as extension and flexion without pain reported. EXTREMITIES: Upper extremities show deep tendon reflexes at 2+ in the biceps and triceps tendons. Lower extremities are 1+ in patellar tendons. The patient does have a well-bandaged area over the right anterior tibia and is wrapped extensively on the right leg. Left leg is not. 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 Lower extremities show 5/5 dorsiflexion and extension and equal. Peripheral pulses are 1+ in posterior tibial and 2+ in radial. Options were discussed with the patient. The patient's old chart was reviewed as his current medication regimen updated. Current review of systems updated today as well. We will refill the patient's medication with methadone, Percocet, also Lyrica and Movantik with instructions and side effects to be aware of discussed with each of the medications. The patient has had appropriate K-TRACS reporting as well as appropriate urinalysis to date and we will refill it for 2-month period. The patient was given instruction as well as side effects with each of the medication. Also, have a urinalysis today as part of routine screening. The patient will return to the clinic in approximately 2 months or sooner as necessary. MANASA ABBOTT MD DR: NICHOLE/sagar JOB#: [id number] / [id number]
== END | disposition home or self-care (01) ==
LOC: PNCL 11:06
PROVIDERS: ATTEND Anesthesiology
DX: M54.12 Radiculopathy, cervical region (principal); G90.513 Complex regional pain syndrome I of upper limb, bilateral; M79.18 Myalgia, other site; M54.81 Occipital neuralgia
CPT/HCPCS: G0463

== ENCOUNTER → 2019-04-30 | Outpatient (CLI) | payer OTHER ==
[2017-11-03 14:18] VITALS: BP 137/61
[~2019-04-30] MED LIST changes: +ATOR20TA58 PO; +SEMA0.25 SQ
--- NOTE | 2019-05-01 03:28 | PAIN ---
DATE OF SERVICE: 04/30/2019 DIAGNOSES: 1. Chronic pain syndrome. 2. Cervicalgia with cervical radiculopathy. 3. Complex regional pain syndrome, bilateral upper extremities. 4. Myofascial pain. 5. Occipital neuralgia. HISTORY OF PRESENT ILLNESS: The patient is 54-year-old male who returns for followup status post medication management with methadone and oxycodone. The patient reports he has been doing fairly well on a fairly stable regimen with about 70 percent improvement overall with the pain medication, although it is not, by any means, 100 percent improved, still has significant pain in the base of neck and shoulders, upper back, mid back, low back, upper extremities, lower extremities, mostly upper extremities and the neck is his main complaint. The patient reports over the past week, his pain is a 9 on a scale of 10 at its worst, 6 on average, 6 at its least and is 6 today. The patient reports tingling, burning, stabbing, aching, dull, sharp, tight, shooting, radiating, constant, severe at times with increased activity. The patient is having difficulty sleeping at night, is only able to sleep on his left side on a ramp and wedge pillow that he has acquired but still has some significant pain in the neck in the mornings on waking up. The patient reports he has recently had an ultrasound of his liver. He has some fatty infiltration and some elevated liver function studies, also some increasing kidney disease and his primary care physician is working him up for this as well. The patient reports no new motor or sensory deficits, no new changes. No side effects with his medications. PHYSICAL EXAMINATION: VITAL SIGNS: The patient's blood pressure 149/75, pulse 67, respirations 18, temperature 98.1 degrees Fahrenheit, weight is 340 pounds. GENERAL: The patient is awake, alert, oriented, appropriate, very pleasant demeanor. HEENT: Head is normocephalic, atraumatic. Extraocular movements are intact and symmetrical. Oral cavity: Mucous membranes moist and pink. Dentition is intact. NECK: Shows anterior throat supple without palpable lymphadenopathy noted. Swallow reflex symmetrical. CHEST: Shows normal on inspection. Breath sounds are clear to auscultation bilaterally. HEART: Shows S1, S2 clear. ABDOMEN: Obese, soft, nontender, nondistended. BACK: Shows spine grossly in the midline, flattening of lumbar lordotic curve as well as the thoracic kyphotic curvature and some flattening of cervical lordotic curvature as well. Cervical paraspinous muscle shows symmetrical on inspection, with palpation shows some moderate tenderness without specific radiation. The patient has good rotational motion both laterally with the neck as well as the lumbar spine, both laterally greater than 45 degrees of the cervical spine, closer to 90 degrees as well as extension and flexion were somewhat limited, but only by mechanical limitation not secondary to pain and in the base of the neck and shoulders, it is mildly tender with extension as well, but not with forward flexion. EXTREMITIES: Upper extremities show deep tendon reflexes 2+ in the biceps and triceps tendons. Motor exam is approximately 3-4 on a scale of 5 with dishwasher strength, but is symmetrical. Bicep and tricep flexion is 4/5 and symmetrical as well. Peripheral pulses are 2+ radial. No peripheral edema is noted. Options were discussed with the patient. The patient's old chart was reviewed as his current medication regimen updated. Current review of systems updated today as well. We will refill the patient's methadone as well as oxycodone. He is doing quite well. He has been on a very stable regimen. The patient has had appropriate K-TRACS reporting as well as appropriate urinalysis to date. We will refill this for a 2-month period as well as baclofen. The patient was given instruction as well as side effects to be aware of each of these medications. He will follow up approximately in 2 months or sooner as necessary. The patient will follow up with his primary care physician regarding his other findings of liver function studies and kidney studies as scheduled. MANASA ABBOTT MD DR: NICHOLE/sagar JOB#: [id number] / [id number]
== END | disposition home or self-care (01) ==
LOC: PNCL 11:21
PROVIDERS: ATTEND Anesthesiology
DX: M54.12 Radiculopathy, cervical region (principal); G89.4 Chronic pain syndrome; M54.81 Occipital neuralgia; M54.2 Cervicalgia; E66.9 Obesity, unspecified; M40.292 Other kyphosis, cervical region
CPT/HCPCS: G0463

== ENCOUNTER → 2019-06-25 | Outpatient (CLI) | payer OTHER ==
[2017-11-03 14:18] VITALS: BP 137/61
[~2019-06-25] MED LIST changes: +LISI1TAB20 PO; -LISI1TAB7 PO
--- NOTE | 2019-06-25 23:02 | PAIN ---
DATE OF SERVICE: 06/25/2019 PROGRESS NOTE FOR PAIN CLINIC CHIEF COMPLAINT: Neck and upper extremity as well as back pain. DIAGNOSES: 1. Chronic pain syndrome. 2. Cervicalgia with cervical radiculopathy. 3. Complex regional pain syndrome, bilateral upper extremities. 4. Myofascial pain. 5. Occipital neuralgia. HISTORY OF PRESENT ILLNESS: The patient is a 54-year-old male who returns for followup status post medication management with both methadone and oxycodone. The patient is also taking Movantik for constipation and Lyrica. The patient reports his main complaint is that he is not sleeping well. He gets to sleep at 5 and is up 1-2 hours later and is up to rest of the night. The patient reports still significant pain in the base of the neck and shoulders, headaches, upper extremity as well as the low back, mid back and into the lower extremities with radiation to the upper extremities being the worst. The patient reports aching, sharp, dull, tight, shooting, burning, tingling, stabbing, sometimes severe, constant, radiating at the base of the neck, shoulders with any activities. The patient reports it is a 7-8 on a scale of 10 at its worst, 6-7 on average and a 6-7 at its least and is a 6-7 today. The patient reports no new motor or sensory deficits, no bowel or bladder incontinence. PHYSICAL EXAMINATION: VITAL SIGNS: The patient's blood pressure 150/83, pulse 67, respirations 18, temperature is 98.1 degrees Fahrenheit, weight is 332 pounds. GENERAL: The patient is awake, alert, oriented, appropriate, very pleasant demeanor. HEENT: Head shows normocephalic, atraumatic. Extraocular movements are intact and symmetrical. Oral cavity: Mucous membranes moist and pink. Dentition is intact. NECK: Shows anterior throat supple without palpable lymphadenopathy noted. Swallow reflex symmetrical. CHEST: Shows normal on inspection. Breath sounds clear to auscultation bilaterally. HEART: Shows S1, S2 clear. ABDOMEN: Obese, soft, nontender, nondistended. BACK: Shows spine grossly in the midline. Well-healed surgical scarring is noted in the cervical distribution. Posterior cervical musculature shows moderate tenderness with palpation, but symmetrical on inspection. Easily palpable spinal cord stimulator is again noted on the flank. The patient has good rotational motion of cervical spine, both laterally as well as extension and flexion without significant difficulty. EXTREMITIES: The patient's upper extremities show deep tendon reflexes at 2+ in the biceps and triceps tendons. 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 No allodynia is noted. No hyperesthesia in the upper extremities, it is warm and dry to touch. Peripheral pulses are 2+ radial bilaterally. PLAN: Options were discussed with the patient. The patient's old chart was reviewed as his current medication regimen updated. Current review of systems updated today as well. We will refill the patient's methadone as well as Percocet with instructions, side effects to be aware of also Lyrica and Movantik and we will add Lunesta for sleep. The patient is having some difficulty sleeping and I will see if this may help. We discussed all his medications with instructions, side effects to be aware of. The patient has had appropriate K-TRACS reporting as well as appropriate urinalysis to date. We will make these for a 2-month period. The patient will return to the clinic in approximately 2 months or sooner if necessary. MANASA ABBOTT MD DR: NICHOLE/sagar JOB#: [id number] / [id number]
== END | disposition home or self-care (01) ==
LOC: PNCL 11:25
PROVIDERS: ATTEND Anesthesiology
DX: M54.12 Radiculopathy, cervical region (principal); G89.4 Chronic pain syndrome; M79.18 Myalgia, other site; M54.81 Occipital neuralgia; K59.00 Constipation, unspecified; E66.9 Obesity, unspecified; Z79.891 Long term (current) use of opiate analgesic; Z79.899 Other long term (current) drug therapy
CPT/HCPCS: G0463

== ENCOUNTER → 2019-08-21 | Outpatient (CLI) | payer OTHER ==
[2017-11-03 14:18] VITALS: BP 137/61
--- NOTE | 2019-08-21 15:01 | PAIN ---
DATE OF SERVICE: 08/21/2019 PROGRESS NOTE FOR PAIN CLINIC DIAGNOSES: 1. Chronic pain syndrome. 2. Cervical radiculopathy with cervicalgia. 3. Complex regional pain syndrome, bilateral upper extremities. 4. Myofascial pain. 5. Occipital neuralgia. HISTORY OF PRESENT ILLNESS: The patient is a 54-year-old male who returns for followup status post medication management with both methadone and oxycodone, also taking the Lyrica for pain and we started Lunesta after his last visit, which he reports does help him sleep. The patient reports pain is fairly well controlled at this point about a 60%-70% improvement overall with the medications, but without specific side effects. The patient reports still significant pain in the base of the neck, shoulders, upper back, mid back, low back. The patient reports he is scheduled to have weight loss surgery in about 1 month as well and looking forward to that. The patient reports his pain is an 8-9 on a scale of 10 at its worst over the past week, 6-7 on average, 6-7 at its least and is 6-7 today. The patient reports it sporadically awakens him from sleep with the Lunesta is helping him sleep better. The patient describes the pain as aching, sharp, dull, tight, shooting, burning, tingling, cramping, stabbing, radiating, severe, constant, stimulator working well, however, with good paresthesia in the neck and shoulders, upper extremities, reports it does keep him from having tremors as much and the pain is helpful with this. He is keeping it charged and having no difficulty with the stimulator itself and it is showing good coverage as previously. PHYSICAL EXAMINATION: VITAL SIGNS: The patient's blood pressure is 145/89, pulse 65, respirations 16, temperature 98.2 degrees Fahrenheit, weight is 339 pounds. GENERAL: The patient is awake, alert, oriented, appropriate, very pleasant demeanor. HEENT: Head shows normocephalic, atraumatic. Extraocular movements are intact and symmetrical. Oral cavity: Mucous membranes moist and pink. Dentition is intact. NECK: Shows anterior throat supple without palpable lymphadenopathy noted. Swallow reflex symmetrical. CHEST: Shows normal on inspection. Breath sounds clear to auscultation bilaterally. HEART: Shows S1, S2 clear. No murmurs auscultated. ABDOMEN: Soft, nontender, nondistended. No palpable organomegaly is noted. No rebound or guarding demonstrated. BACK: Shows spine grossly in the midline. Normal-appearing thoracic kyphosis, some minor flattening of cervical lordotic curvature and lumbar lordotic curvature. Cervical paraspinous muscle shows symmetrical on inspection, with palpation shows some moderate tenderness diffusely throughout the upper cervical paraspinous musculature as well as the middle and lower distribution, also into the cervical paraspinous musculature with some moderate tenderness bilaterally diffusely without specific trigger points or radiation. The patient has good rotational motion of cervical spine with some minor pain with extension, but not forward flexion, right and left lateral rotation past 45 degrees. EXTREMITIES: The patient's upper extremities show deep tendon reflexes 2+ in the biceps and triceps tendons. Motor exam is strong with hot baller strength rated at 5/5 as is bicep and tricep flexion bilaterally. Peripheral pulses are 2+ radial distribution. No peripheral edema is noted. Options were discussed with the patient. The patient's old chart was reviewed as his current medication regimen updated. Current review of systems updated today as well. We will proceed with a refill for the patient's methadone as well as oxycodone for a 2-month period. The patient had appropriate K-TRACS reporting as well as appropriate urinalysis to date. We will refill medications for 2 months. Also, refill Lyrica and the Lunesta. Again, instructions, side effects to be aware of with each medication were given today. The patient will also have a urinalysis today as routine screening as well as renewal of the patient's narcotic contract. The patient was given a copy of this as well. The patient will follow up in approximately 2 months or sooner as necessary. MANASA ABBOTT MD DR: NICHOLE/sagar JOB#: [id number] / [id number]
== END | disposition home or self-care (01) ==
LOC: PNCL 10:57
PROVIDERS: ATTEND Anesthesiology
DX: M54.12 Radiculopathy, cervical region (principal); G89.4 Chronic pain syndrome; G90.513 Complex regional pain syndrome I of upper limb, bilateral; M54.81 Occipital neuralgia; M54.2 Cervicalgia
CPT/HCPCS: G0463

== ENCOUNTER → 2019-10-16 | Outpatient (CLI) | payer OTHER ==
[2017-11-03 14:18] VITALS: BP 137/61
--- NOTE | 2019-10-16 14:52 | PAIN ---
DATE OF SERVICE: 10/16/2019 PROGRESS NOTE FOR PAIN CLINIC DIAGNOSES: 1. Chronic pain syndrome. 2. Cervicalgia. 3. Cervical radiculopathy. 4. Complex regional pain syndrome, bilateral upper extremities. 5. Myofascial pain. HISTORY OF PRESENT ILLNESS: The patient is a 54-year-old male, who returns for followup status post medication management with both methadone and oxycodone, Lunesta for sleep and Lyrica. 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 The patient has exacerbated the pain fairly significantly in the base of neck and shoulder. The patient reports that 10 on a scale of 10 at its worst, average and 8 at its least and is a 10 today. The patient reports it is aching, sharp, dull, tight, shooting, burning, tingling, cramping and stabbing, radiating, becoming more severe and constant in the base of neck and shoulders. The patient reports it is significantly worsened since the pallbearing duties, but it is beginning to resolve slightly. The patient also had a flu last week and prior to that, he had a gastric bypass surgery last month, for which he reports he has lost 30 pounds from so far. The patient reports, otherwise, fairly stable and no new motor or sensory deficits, no new side effects with medications. PHYSICAL EXAMINATION: VITAL SIGNS: The patient's blood pressure 126/81, pulse 61, respirations 16, temperature 97.6 degrees Fahrenheit, weight is 309 pounds. GENERAL: The patient is awake, alert, oriented, appropriate, very pleasant demeanor. HEENT: Shows normocephalic, atraumatic. Extraocular movements are intact and symmetrical. Oral cavity: Mucous membranes moist and pink. Dentition is intact. NECK: Shows anterior throat supple without palpable lymphadenopathy noted. Swallow reflex symmetrical. CHEST: Shows normal on inspection. Breath sounds are clear bilaterally. HEART: Shows S1, S2 clear. No murmurs auscultated. ABDOMEN: Soft, obese. A Well-healed surgical scar is noted for laparoscopic incisions. No palpable organomegaly is noted. BACK: Shows spine grossly in the midline. Cervical paraspinous muscle shows well-healed surgical scarring with a spinal cord stimulator palpable and present. Paraspinous musculature in the cervical distribution shows moderate tenderness throughout the upper, middle and lower distribution of the cervical paraspinous muscles diffusely, but there is fairly significant pain as this also true with rotational motion of cervical spine, which the patient shows significant guarding both right and left lateral to 45 degrees as well as extension and flexion with guarding as well, but performed fully. EXTREMITIES: Upper extremities show deep tendon reflexes 2+ in biceps, triceps tendons. Motor exam is strong with frame nailer strength rated at 5/5 as is bicep and tricep flexion and equal. Peripheral pulses are 2+ radial distribution. No peripheral edema is noted. Options were discussed with the patient. The patient's old chart was reviewed as his current medication regimen updated. Current review of systems updated today as well. We will refill the patient's medication. The patient had appropriate K-TRACS reporting as well as appropriate urinalysis to date. We will have urinalysis today as well as a routine screening and renew the patient's narcotic contract. The patient was given a copy of this as well. The patient will return to the clinic in approximately 2 months or sooner if necessary. MANASA ABBOTT MD DR: NICHOLE/sagar JOB#: [id number] / [id number]
== END | disposition home or self-care (01) ==
LOC: PNCL 11:00
PROVIDERS: ATTEND Anesthesiology
DX: M54.12 Radiculopathy, cervical region (principal); M79.18 Myalgia, other site; G89.4 Chronic pain syndrome
CPT/HCPCS: G0463

== ENCOUNTER → 2019-12-11 | Outpatient (CLI) | payer OTHER ==
[2017-11-03 14:18] VITALS: BP 137/61
--- NOTE | 2019-12-11 21:50 | PAIN ---
DATE OF SERVICE: 12/11/2019 PROGRESS NOTE FOR PAIN CLINIC DIAGNOSES: 1. Chronic pain syndrome. 2. Cervicalgia with cervical radiculopathy. 3. Complex regional pain syndrome, bilateral upper extremities. 4. Myofascial pain. HISTORY OF PRESENT ILLNESS: The patient is a 54-year-old male who returns with history of pain and medication management with good results. The patient is taking methadone as well as oxycodone. The patient reports still doing very well. No significant side effects with the medication. The patient has lost about 62 pounds after his gastric bypass surgery and is pleased about this, but still reports he has some significant pain in the knees as well as the back and neck and shoulders. The patient reports a fairly baseline with the neck and shoulders, spinal cord stimulator has been tuned recently has been turned up by his report, and is helping better. The patient reports sporadically it awakes him from sleep at night, but his main complaint is the base of neck and shoulders, also bilateral knees. The patient reports aching, sharp, dull, tight, shooting, cramping, burning, tingling, radiation and constant pain in the neck and shoulders. The patient reports it is an 8 on a scale of 10 at its worst over the past week, 6 on average, 6 at its least and is a 6 today. The patient reports no new motor or sensory deficits, no new bowel or bladder incontinence, no side effects with medications. PHYSICAL EXAMINATION: VITAL SIGNS: The patient's blood pressure 128/66, pulse 53, respirations 20, temperature 98.1 degrees Fahrenheit, weight is 293 pounds. GENERAL: The patient is awake, alert, oriented, appropriate, very pleasant demeanor. HEENT: Shows normocephalic, atraumatic. Extraocular movements are intact and symmetrical. Oral cavity: Mucous membranes moist and pink. Dentition is intact. NECK: Shows anterior throat supple without palpable lymphadenopathy noted. Swallow reflex symmetrical. CHEST: Shows normal on inspection. Breath sounds are clear bilaterally. HEART: Shows S1, S2 clear. ABDOMEN: Obese but nontender, nondistended. BACK: Shows spine grossly in the midline. Cervical lordotic curvature is flattened as is thoracic kyphotic curvature and lumbar lordotic curvature. Well-healed surgical scar is noted from the spinal cord stimulator placement, and easily palpable stimulator battery is present. The patient has good rotational motion of cervical spine with some guarding with left lateral rotation past 45 degrees right and left as well as with extension, but not with forward flexion. EXTREMITIES: Upper extremities show deep tendon reflexes at 1+ in the biceps and triceps tendons. Motor exam is approximately 5 on a scale of 5 with motion study engineer strength and 4/5 with bicep and tricep flexion bilaterally, but equal. Peripheral pulses are 2+ radial distribution. No peripheral edema is noted. Options were discussed with the patient. The patient's old chart was reviewed as his current medication regimen updated. Current review of systems updated today as well. We will refill the patient's Percocet as well as methadone for 2-month period. The patient had appropriate K-TRACS reporting as well as appropriate urinalysis to date, and we will make the prescription for 2-month duration. Also, refill the patient's Lyrica, baclofen and Lunesta. The patient was given instruction as well as side effects to be aware of each of the medication. Follow up in approximately 2 months or sooner if necessary. MANASA ABBOTT MD DR: NICHOLE/sagar JOB#: [id number] / [id number]
== END | disposition home or self-care (01) ==
LOC: PNCL 11:19
PROVIDERS: ATTEND Anesthesiology
DX: M54.12 Radiculopathy, cervical region (principal); M79.18 Myalgia, other site; G89.4 Chronic pain syndrome; G90.513 Complex regional pain syndrome I of upper limb, bilateral
CPT/HCPCS: G0463

== ENCOUNTER → 2020-02-05 | Outpatient (CLI) | payer OTHER ==
[2017-11-03 14:18] VITALS: BP 137/61
[~2020-02-05] MED LIST changes: +PREG-9 PO; -PREG75CA PO
--- NOTE | 2020-02-05 12:48 | PAIN ---
DATE OF SERVICE: 02/05/2020 PROGRESS NOTE FOR PAIN CLINIC DIAGNOSES: 1. Chronic pain syndrome. 2. Cervicalgia with cervical radiculopathy. 3. Complex regional pain syndrome, bilateral upper extremities. 4. Myofascial pain. 5. Occipital neuralgia. HISTORY OF PRESENT ILLNESS: The patient is a 54-year-old male who returns for followup status post medication management with both methadone and oxycodone, also the patient is taking Lyrica and Lunesta for sleep. Baclofen for muscle relaxation. The patient reports he is doing fairly well with each of these and is on a very stable regimen with about a 70% improvement to 80% improvement at times. The patient reports he fell down some stairs a few days ago, which has exacerbated the pain in the base of the neck and shoulders, but prior to that he was doing fairly well, again with no side effects with the medication. The patient reports the pain now is a 9 on a scale of 10 at its worst, average, a 7 at its least after the fall. The patient reports prior to that it was more about 5 to an 8. The patient reports it is aching, sharp, dull, tight, shooting, tingling, burning, stabbing in the base of the neck, shoulders, upper back, mid back, low back, bilateral upper extremities, base of the neck with radiating pain in the arms as well as into the legs. The patient reports his stimulator is still holding good charges and rechargeable without difficulty. Still has good paresthesia in the upper extremities with good coverage, but not with a significant overall pain reduction, but is able to get about 70-80% with the combination of the stimulator and the oral medications. The patient reports no new changes, no new bowel or bladder incontinence, no new motor or sensory deficits. PHYSICAL EXAMINATION: VITAL SIGNS: The patient's blood pressure 138/95, pulse 60, respirations 18, temperature 98.8 degrees Fahrenheit, height is 6 feet 4 inches and weight is 285 pounds. GENERAL: The patient is awake, alert, oriented, appropriate, very pleasant demeanor. HEENT: Exam shows normocephalic, atraumatic. Extraocular movements are intact and symmetrical. Oral cavity shows mucous membranes moist and pink. Dentition is intact. NECK: Shows anterior throat supple without palpable lymphadenopathy noted. Swallow reflex symmetrical. CHEST: Shows normal on inspection. Breath sounds are clear bilaterally. HEART: Shows S1, S2 clear. No murmurs auscultated. ABDOMEN: Soft, nontender, nondistended. No palpable organomegaly is noted. No rebound or guarding demonstrated. BACK: Shows spine grossly in the midline, normal-appearing cervical lordotic curvature with some minor flattening of thoracic kyphotic curvature and flattening of lumbar lordotic curvature. Cervical paraspinous muscle shows symmetrical on inspection, on palpation shows some very tender throughout the upper, middle and lower distribution of paraspinous muscles bilaterally as well as in the superior, medial and lateral trapezius, which is diffusely tender throughout both right and left without specific radiation. The patient has good rotational motion of cervical spine with some limited extension and limited flexion secondary to pain. Right and left lateral rotations performed past 45 degrees with less resistance, but also tender. EXTREMITIES: The patient's upper extremities show deep tendon reflexes at 2+ in the biceps and triceps tendons. Motor exam is 5/5 with playground aide strength, bicep and tricep flexion and equal. Peripheral pulses are 2+ bilaterally. Lower extremities show deep tendon reflexes at 1+ patellar and tendo calcaneus tendons, some minor tenderness on the lateral aspect of the right knee is noted, but without any specific swelling with good hinge motion of the knees bilaterally. Motor exam is 5/5 with dorsiflexion, extension, quadriceps and hamstring flexion. Peripheral pulses are 2+ radial, 1+ posterior tibial. No peripheral edema in the upper or lower extremities. Options were discussed with the patient. The patient's old chart was reviewed as his current medication regimen updated. Current review of systems updated today as well. We will proceed with refill of the patient's medication. The patient had appropriate K-TRACS reporting as well as appropriate urinalysis today and we will give him a 2-month prescription for his medications with instructions, side effects to be aware of each of the medications. The patient will follow up in approximately 2 months or sooner as necessary. MANASA ABBOTT MD DR: NICHOLE/sagar JOB#: [id number] / [id number]
== END | disposition home or self-care (01) ==
LOC: PNCL 11:26
PROVIDERS: ATTEND Anesthesiology
DX: G89.4 Chronic pain syndrome (principal); M54.12 Radiculopathy, cervical region; M79.18 Myalgia, other site; G90.513 Complex regional pain syndrome I of upper limb, bilateral; M54.81 Occipital neuralgia
CPT/HCPCS: G0463

== ENCOUNTER → 2020-04-01 | Outpatient (CLI) | payer OTHER ==
[2017-11-03 14:18] VITALS: BP 137/61
[~2020-04-01] MED LIST changes: +INSU100I41 SQ
--- NOTE | 2020-04-01 12:58 | PAIN ---
DATE OF SERVICE: 04/01/2020 PROGRESS NOTE FOR PAIN CLINIC DIAGNOSES: 1. Chronic pain syndrome. 2. Cervicalgia with cervical radiculopathy. 3. Complex regional pain syndrome, bilateral upper extremities. 4. Myofascial pain. 5. Occipital neuralgia. HISTORY OF PRESENT ILLNESS: The patient is a 54-year-old male who returns for followup status post medication management with both methadone and oxycodone. The patient is also taking Lyrica and baclofen. The patient reports he is doing fairly well with this very stable regimen with those medications without significant side effects, but the patient is somewhat distraught today as he reports that his of many years has just left him about 2 days ago. He is sad about this, but reports his pain level is about the same. The patient reports it is a 9 on a scale of 10 at its worst, 8 on average, 8 at its least and is an 8 today. It is aching, sharp, dull, tight, shooting in the base of the neck, shoulders, upper back, mid back, low back, bilateral upper extremities with radiating pain that can be constant, severe with activity. He has not been very active recently and this has decreased the pain to a mild extent. Difficulty sleeping at night, especially the last few days with recent social events going on. The patient reports he also has decreased appetite, but no indication of suicidal ideation or tendencies at this time. The patient reports no new motor or sensory deficits. Reports his spinal cord stimulator is working well, and he can detect the stimulation with good paresthesia and is staying charged without difficulty with it. The patient reports he was taking Lunesta for sleep, but he has had two bouts where he was excessively sedated in the morning and at night when he went up to use the bathroom, fell twice and he stopped taking it on his own. This is decreased with those episodes, but he is not sleeping as well as a consequence. PHYSICAL EXAMINATION: VITAL SIGNS: The patient's blood pressure 147/69, pulse 64, respirations 16, temperature 98.7 degrees Fahrenheit, height is 6 feet 4 inches, weight is 281 pounds. GENERAL: The patient is awake, alert, oriented, appropriate, very pleasant demeanor. HEENT: Shows normocephalic, atraumatic. Extraocular movements are intact and symmetrical. Oral cavity shows mucous membranes moist and pink. Dentition is intact. NECK: Shows anterior throat supple without palpable lymphadenopathy noted. Swallow reflex symmetrical. CHEST: Shows normal on inspection. Breath sounds clear to auscultation bilaterally. HEART: Shows S1, S2 clear. No murmurs auscultated. ABDOMEN: Obese, soft, nontender, nondistended. No palpable organomegaly is noted. No rebound or guarding demonstrated. BACK: Shows spine grossly in the midline. Normal appearing thoracic kyphosis and minor flattening of lumbar lordotic curvature. The patient has good rotational motion of cervical spine, both laterally as well as extension and flexion. EXTREMITIES: The patient shows upper extremity deep tendon reflexes at 2+ in the biceps and triceps tendons. Motor exam is strong with human resources intern strength at 5/5 human resources intern, bicep and tricep flexion. Peripheral pulses are 2+ bilaterally in the radial distribution. Options were discussed with the patient. The patient's old chart was reviewed as his current medication regimen updated. Current review of systems updated today as well and we will refill the patient's methadone as well as oxycodone. The patient has had appropriate K-TRACS reporting as well as appropriate urinalysis to date. We refilled the medication for 2-month period. The patient was given instruction as well as side effects to be aware of each of the medications and will follow up in approximately 2 months or sooner as necessary. MANASA ABBOTT MD DR: NICHOLE/sagar JOB#: [id number] / [id number]
== END | disposition home or self-care (01) ==
LOC: PNCL 11:15
PROVIDERS: ATTEND Anesthesiology
DX: M54.12 Radiculopathy, cervical region (principal); M54.81 Occipital neuralgia; M79.18 Myalgia, other site; E11.9 Type 2 diabetes mellitus without complications; G89.4 Chronic pain syndrome; Z88.0 Allergy status to penicillin; Z88.8 Allergy status to other drugs, medicaments and biological substances; Z79.899 Other long term (current) drug therapy
CPT/HCPCS: G0463

== ENCOUNTER → 2020-05-27 | Outpatient (CLI) | payer OTHER ==
[2017-11-03 14:18] VITALS: BP 137/61
--- NOTE | 2020-05-27 12:36 | PDOC ---
Progress Note - Pain Clinic Date of Service: DOS: DATE: 05/27/20 TIME: 12:31 Diagnosis: Dx: Chronic pain syndrome Cervicalgia with cervical radiculopathy Complex regional pain syndrome bilateral upper extremities Myofascial pain Occipital neuralgia History or Present Illness: HPI: 55-year-old male returns follow-up status post medication management both methadone and oxycodone. Patient also taking Lyrica and trazodone and baclofen patient reports he been on a very stable regimen is doing fairly well about 65 to 70% improvement of his head and increase activity as his has moved out and has been moving out some of her belongings carrying a lot of heavy items up and down stairs. Patient reports some increased pain in the base of the neck and shoulders mostly upper back mid back and low back with increased activity but again fairly well controlled with medications without specific side effects. Rates pain as a 9-10 on scale 10 is worse in the past week 8 on average 7 its least is an 8 today patient scribes a tingling burning cramping stabbing in the base the neck and shoulders low back is radiating and constant across the low back with walking better with sitting or laying down patient ports that can be sharp dull alternating in the back and legs as well as the upper extremities bilaterally. Patient with no loss of motor function no bowel or bladder incontinence Physical Exam: VS: Pressure is 149/80 pulse 58 respirations 16 temperature is 98.3 F height is 6 feet 4 inches weight is 269 pounds PE: PHYSICAL EXAMINATION: GENERAL: The patient is awake, alert, oriented, appropriate, very pleasant demeanor HEENT: Shows normocephalic, atraumatic. Extraocular movements are intact and symmetrical. Oral cavity: Mucous membranes moist and pink. NECK: Shows anterior throat supple without palpable lymphadenopathy noted. Swallow reflex is symmetrical. CHEST: Shows normal on inspection. Breath sounds are clear bilaterally, no rales rhonchi or wheezes auscultated. HEART: Shows S1, S2 clear. No murmurs auscultated. ABDOMEN: Soft, nontender, nondistended. No palpable organomegaly is noted. No rebound or guarding demonstrated. BACK: Shows spine grossly in the midline. Normal-appearing cervical lordotic curvature, with palpation cervical paraspinous but shows moderately tender diffusely in the middle and lower distribution the paraspinous muscles bilateral ly as well as in the superior medial trapezius bilaterally but without specific trigger points without radiation or asymmetry. There is slightly increased thoracic kyphosis, some minor flattening of the lumbar lordotic curvature. Lumbar paraspinous muscles show symmetrical on inspection, on palpation shows some moderate tenderness diffusely throughout the upper, middle and lower distribution of the paraspinous muscles bilaterally and also into the lower thoracic paraspinous musculature, firm and tender, but without specific trigger points, without radiation of pain. The patient has good rotational motion of the lumbar spine, both laterally as well as extension and flexion without significant difficulty. No tenderness over the spinous processes, sacrum or sacroiliac regions. EXTREMITIES: Upper extremities show deep tendon reflexes 2+ in the biceps triceps tendons, motor exam is strong with baby stroller rental clerk strength rated proximate 4 to scale 5 equal and symmetrical as is bicep and tricep flexion 4 out of 5 and equal and symmetrical. Peripheral pulses are 2+ radial bilaterally no peripheral edema is noted upper extremities are warm and dry to the touch equal in color and appearance. Lower extremities show deep tendon reflexes 1 in the patellar and tendo calcaneus tendons. Motor exam is 5 on a scale of 5 with right dorsiflexion, extension, quadriceps and hamstring flexion and 5/5 on the left. Peripheral pulses are 1+ posterior tibial. No peripheral edema is noted bilaterally. Lower extremities are warm and dry to touch, equal in color and appearance. SKIN: Shows warm and dry, good turgor. No edema. No sores, rashes or bruising throughout. Procedure: Procedure: Options discussed with the patient. Patient's old chart reviewed his his current medication regimen updated current review of systems updated today as well. Patient has been on very stable regimen with his medications and we will refill the medication for 2-month. Patient is also had appropriate K checks reporting an appropriate urinalyses to date. We will have a urinalysis taken today as routine screening. Patient given instruction as well as side effects beware of each of the medications will follow-up in approximately 2 months or sooner if necessary. Medication Injected: Med Injected: None Condition at Discharge: Condition at Discharge: Condition on discharge is stable MANASA ABBOTT MD May 27, 2020 12:35
== END | disposition home or self-care (01) ==
LOC: PNCL 11:42
PROVIDERS: ATTEND Anesthesiology
DX: M54.12 Radiculopathy, cervical region (principal); E11.9 Type 2 diabetes mellitus without complications; M79.18 Myalgia, other site; Z88.8 Allergy status to other drugs, medicaments and biological substances; Z88.0 Allergy status to penicillin; Z79.899 Other long term (current) drug therapy; Z72.89 Other problems related to lifestyle; Z79.84 Long term (current) use of oral hypoglycemic drugs
CPT/HCPCS: G0463

== ENCOUNTER → 2020-07-22 | Outpatient (CLI) | payer OTHER ==
[2017-11-03 14:18] VITALS: BP 137/61
--- NOTE | 2020-07-22 12:44 | PDOC ---
Progress Note - Pain Clinic Date of Service: DOS: DATE: 07/22/20 TIME: 12:38 Diagnosis: Dx: Chronic pain syndrome with spinal cord stimulator, cervical Cervical radiculopathy with cervicalgia Complex regional pain syndrome bilateral upper extremities Myofascial pain Occipital neuralgia History or Present Illness: HPI: 55-year-old male returns follow-up status post medication management as well as spinal cord stimulation for above diagnoses. Patient taking methadone as well as oxycodone for breakthrough pain Lyrica as well as trazodone. Patient reports he is doing fairly well but has had a increased activity at home as he is been moving some things from the home as well as remodeling several rooms including ghotra floors and ceilings and has had increased difficulty with pain mainly the base the neck and shoulders and upper back. Patient ports he is let it rest for about 2 to 3 days now and is feeling somewhat better but with increased activity becomes more pain. Patient reports otherwise his medications do control his pa in fairly well by about a 70% improvement overall and without any specific side effects. Patient rates pain is a 9 on scale 10 is worse over the past week 8 on average 6-7 at its least and is a 7 today. Patient which is still sleeping fairly well at night pain wakes him from sleep occasionally but much less with use of the trazodone. patient reports no new motor or sensory deficits no new bowel or bladder incontinence or other complaints. Patient reports her stimulator is doing well with good coverage in the upper extremities as well as keeping it charged appropriately without any issues at this time. Physical Exam: VS: Blood pressure 117/67 pulse 69 respiration 16 temperature 99.2 F weight is 262 pounds height is 6 feet 4 inches PE: PHYSICAL EXAMINATION: GENERAL: The patient is awake, alert, oriented, appropriate, very pleasant demeanor HEENT: Shows normocephalic, atraumatic. Extraocular movements are intact and symmetrical. Oral cavity: Mucous membranes moist and pink. NECK: Shows anterior throat supple without palpable lymphadenopathy noted. Swallow reflex symmetrical. CHEST: Shows normal on inspection. Breath sounds are clear bilaterally, no rales rhonchi or wheezes auscultated. HEART: Shows S1, S2 clear. No murmurs auscultated. ABDOMEN: Soft, nontender, nondistended, obese. No palpable organomegaly is noted. No rebound or guarding demonstrated. BACK: Shows spine grossly in the midline. Normal-appearing cervical lordotic curvature. Neck shows some limited rotation of motion with pain with extension not with forward flexion right and left lateral rotation is moderately painful as well. With palpation posterior cervical paraspinous posterior shows moderate tenderness diffusely more on the right than the left throughout the upper middle lower distribution of the cervical paraspinous musculature greater on the right than the left but without specific trigger points or radiation. There is slightly increased thoracic kyphosis, some minor flattening of the lumbar lordotic curvature. Lumbar paraspinous muscles show symmetrical on inspection, on palpation shows some moderate tenderness diffusely throughout the upper, middle and lower distribution of the paraspinous muscles bilaterally, but witho ut specific trigger points, without radiation of pain. The patient has good rotational motion of the lumbar spine, both laterally as well as extension and flexion without significant difficulty. No tenderness over the spinous processes, sacrum or sacroiliac regions. EXTREMITIES: Lower extremities show deep tendon reflexes 1+ in the patellar and tendo calcaneus tendons. Motor exam is 5 on a scale of 5 with right dorsiflexion, extension, quadriceps and hamstring flexion and 5/5 on the left. Peripheral pulses are 1+ posterior tibial. No peripheral edema is noted bilaterally. Lower extremities are warm and dry to touch, equal in color and appearance. Upper extremity show deep tendon reflexes 2+ in the biceps and triceps tendons, motor exam is strong with 5 out of 5 copyman strength bicep and tricep flexion and symmetrical. Peripheral pulses are 2+ radial, no peripheral edema is noted bilaterally. SKIN: Shows warm and dry, good turgor. No edema. No sores, rashes or bruising throughout. Procedure: Procedure: Options were discussed with the patient. Patient's old chart was reviewed his his current medication regimen updated current review of systems updated today as well. We will refill patient's medication for 2-month. Patient has had appropriate K. Trax reporting as well as appropriate urinalyses to date. Patient was given instructions well side effects to be aware with each of the medications will follow-up in approximately 2 months or sooner as necessary. Medication Injected: Med Injected: None Condition at Discharge: Condition at Discharge: Condition at discharge is stable MANASA ABBOTT MD Jul 22, 2020 12:43
== END ==
LOC: PNCL 11:15
PROVIDERS: ATTEND Anesthesiology
DX: M54.12 Radiculopathy, cervical region (principal); G90.513 Complex regional pain syndrome I of upper limb, bilateral; M54.81 Occipital neuralgia; M79.18 Myalgia, other site; E11.9 Type 2 diabetes mellitus without complications; G89.4 Chronic pain syndrome; Z88.0 Allergy status to penicillin; Z88.8 Allergy status to other drugs, medicaments and biological substances; Z87.891 Personal history of nicotine dependence; Z79.899 Other long term (current) drug therapy; Z79.84 Long term (current) use of oral hypoglycemic drugs
CPT/HCPCS: G0463

== ENCOUNTER → 2020-09-16 | Outpatient (CLI) | payer OTHER ==
[2017-11-03 14:18] VITALS: BP 137/61
[~2020-09-16] MED LIST changes: +FLUO10CA13 PO
--- NOTE | 2020-09-16 12:54 | PDOC ---
Progress Note - Pain Clinic Date of Service: DOS: DATE: 09/16/20 TIME: 12:50 Diagnosis: Dx: Chronic pain syndrome Cervicalgia with cervical radiculopathy with spinal cord stimulator Complex regional pain syndrome bilateral upper extremities Myofascial pain Occipital neuralgia History or Present Illness: HPI: 55-year-old male returns to follow-up status post medication management with both methadone and oxycodone also taking baclofen and Lyrica. Patient reports he is doing fairly well with the pain control he has been having some difficulty sleeping at night lately and is somewhat depressed regarding his recent divorce. Patient reports pain is in the base the neck upper shoulders upper back mid back low back bilateral lower extremities bilateral upper extremities stimulator still functioning adequately with good ability to charge and stimulate but pain is only reduced by approximately 50 to 60% overall. Patient reports no side effects with medications rates his pain is 8-9 on scale 10 is worse over the past week 7 on 8 on average and 67 its least is a 7 today describes tingling burning stabbing aching sharp dull tight shooting in the back upper extremities with radiating pain the lower extremities as well sometimes constant sometimes severe depending on activity. Patient reports he had increased activity lately because he is been doing some remodeling to his house and is considering selling it in the year or so. Patient ports no new motor or sensory deficits or other concerns. Physical Exam: VS: Pressure is 139/73 pulse 56 respirations 16 temperature is 99.0 F height is 6 foot 4 inches weight is 265 pounds PE: PHYSICAL EXAMINATION: GENERAL: The patient is awake, alert, oriented, appropriate, very pleasant demeanor HEENT: Shows normocephalic, atraumatic. Extraocular movements are intact and symmetrical. Oral cavity: Mucous membranes moist and pink. Dentition is intact. NECK: Shows anterior throat supple without palpable lymphadenopathy noted. Swallow reflex symmetrical. CHEST: Shows normal on inspection. Breath sounds are clear bilaterally. HEART: Shows S1, S2 clear. No murmurs auscultated. ABDOMEN: Soft, nontender, nondistended, obese. No palpable organomegaly is noted. No rebound or guarding demonstrated. BACK: Shows spine grossly in the midline. Normal-appearing cervical lordotic curvature. Cervical paraspinous muscles show symmetrical with inspection on palpation some diffuse tenderness throughout the upper lower and middle distribution the paraspinous muscles without specific trigger points atrophy or hypertrophy or asymmetry. Patient has good rotational motion with some moderate guarding with extension but not with right or left lateral rotation. There is slightly increased thoracic kyphosis, some minor flattening of the lumbar lordotic curvature. Lumbar paraspinous muscles show symmetrical on inspection, on palpation shows some moderate tenderness diffusely throughout the upper, middle and lower distribution of the paraspinous muscles bilaterally and also into the lower thoracic paraspinous musculature, firm and tender, but without specific trigger points, without radiation of pain. The patient has good rotational motion of the lumbar spine, both laterally as well as extension and flexion without significant difficulty. EXTREMITIES: Lower extremities show deep tendon reflexes 1+ in the patellar and tendo calcaneus tendons. Motor exam is 4 on a scale of 5 with right dorsiflexion, extension, quadriceps and hamstring flexion and 4/5 on the left. Peripheral pulses are 1+ posterior tibial. No peripheral edema is noted bilaterally. Lower extremities are warm and dry to touch, equal in color and appearance. SKIN: Shows warm and dry, good turgor. No edema. No sores, rashes or bruising throughout. Procedure: Procedure: Options were discussed with the patient. Patient chart was reviewed his his current medication regimen updated current review of systems updated today as well. We will refill patient's methadone as well as oxycodone, Lyrica baclofen for 2-month period. Patient was given instructions well side effects beware of each of the medications. Patient is had appropriate K tracts report as well as appropriate urinalyses to date and we will make this a 2-month refill. Patient will follow up after 2 months or sooner if necessary. Medication Injected: Med Injected: None Condition at Discharge: Condition at Discharge: Condition at discharge is stable. MANASA ABBOTT MD Sep 16, 2020 12:54
== END | disposition home or self-care (01) ==
LOC: PNCL 11:15
PROVIDERS: ATTEND Anesthesiology
DX: G89.4 Chronic pain syndrome (principal); M54.12 Radiculopathy, cervical region; G90.513 Complex regional pain syndrome I of upper limb, bilateral; M79.18 Myalgia, other site; M54.81 Occipital neuralgia; E11.9 Type 2 diabetes mellitus without complications; J44.9 Chronic obstructive pulmonary disease, unspecified; E66.9 Obesity, unspecified; G47.30 Sleep apnea, unspecified; Z87.891 Personal history of nicotine dependence; Z79.4 Long term (current) use of insulin; Z79.899 Other long term (current) drug therapy; Z98.890 Other specified postprocedural states; Z88.0 Allergy status to penicillin; Z88.1 Allergy status to other antibiotic agents; Z88.8 Allergy status to other drugs, medicaments and biological substances
CPT/HCPCS: G0463

== ENCOUNTER → 2020-11-11 | Outpatient (CLI) | payer OTHER ==
[2017-11-03 14:18] VITALS: BP 137/61
[~2020-11-11] MED LIST changes: +BUSP5TAB PO; +VENL37.5 PO
--- NOTE | 2020-11-11 11:39 | PDOC ---
Progress Note - Pain Clinic Date of Service: DOS: DATE: 11/11/20 TIME: 11:35 Diagnosis: Dx: Chronic pain syndrome Cervicalgia with cervical radiculopathy Complex regional pain syndrome bilateral upper extremities Myofascial pain Occipital neuralgia History or Present Illness: HPI: 55-year-old male returns follow-up status post medication management with methadone and oxycodone also baclofen for spasticity trazodone for sleep and Lyrica. Patient reports he is doing very well with this on a very stable regimen he also had a new psychiatrist today with prescriptions for BuSpar and new antidepressant which he feels is helping. Patient reports still some significant pain in the base the neck and shoulders upper back mid back low back rated 8-9 on scale 10 is worse over the past week 6-7 on average and is a 67 at its least is a 67 today. Patient describes pain as aching sharp dull tight shooting stabbing burning tingling in the base the neck and shoulders also some pain in the low back which is aching and dull in his lower extremities at times. Patient reports no loss of motor function no bowel or bladder incontinence he feels that he is doing fairly well with his current regimen with only some moderate constipation as the only side effect which he decreases with MiraLAX and increase hydration. She reports no new motor or sensory deficits no new changes. Physical Exam: VS: Blood pressure is 155/69 pulse 61 respirations are 18 temperature is 98.2 F height is 6 feet 3 inches weight is 278 pounds PE: PHYSICAL EXAMINATION: GENERAL: The patient is awake, alert, oriented, appropriate, very pleasant chuckie anor HEENT: Shows normocephalic, atraumatic. Extraocular movements are intact and symmetrical. Oral cavity: Mucous membranes moist and pink. NECK: Shows anterior throat supple without palpable lymphadenopathy noted. Swallow reflex symmetrical. CHEST: Shows normal on inspection. Breath sounds are clear bilaterally, no rales or rhonchi. HEART: Shows S1, S2 clear. No murmurs auscultated. ABDOMEN: Soft, nontender, nondistended, obese. No palpable organomegaly is noted. No rebound or guarding demonstrated. BACK: Shows spine grossly in the midline. Normal-appearing cervical lordotic curvature. Cervical paraspinous muscles show symmetrical on inspection with palpation some moderate tenderness diffusely in the upper middle lower decrease the paraspinous muscles but without specific trigger points without radiation. Patient shows good rotation motion cervical spine both laterally as well as extension and full forward flexion with some moderate pain with extension but not with forward flexion but no radiation. There is slightly increased thoracic kyphosis, some minor flattening of the lumbar lordotic curvature. Lumbar paraspinous muscles show symmetrical on inspection, on palpation shows some moderate tenderness diffusely throughout the upper, middle and lower distribution of the paraspinous muscles bilaterally and also into the lower thoracic paraspinous musculature, firm and tender, but without specific trigger points, without radiation of pain. The patient has good rotational motion of the lumbar spine, both laterally as well as extension and flexion without significant difficulty, but with moderate pain reported in all rotations right and left lateral greater than 10 degrees as well as extension and forward flexion. EXTREMITIES: Upper extremities show deep tendon reflexes at 2+ in the bicep triceps tendons motor exam is strong with assistant superintendent strength rated at a 4 to scale 5 equal and symmetrical with assistant superintendent strength bicep and tricep flexion. Peripheral pulses are 2+ radial bilaterally. Lower extremities show deep tendon reflexes 1+ in the patellar and tendo calcaneus tendons. Motor exam is 4 on a scale of 5 with right dorsiflexion, extension, quadriceps and hamstring flexion and 4/5 on the left. Peripheral pulses are 1+ posterior tibial. No peripheral edema is noted bilaterally. SKIN: Shows warm and dry, good turgor. No edema. No sores, rashes or bruising throughout. Procedure: Procedure: Options were discussed with the patient. Patient's old chart reviews his current medication regimen updated current review of systems updated today as well. We will refill patient's medication for 2-month. Pedro has had appropriate K tracks report as well as appropriate urinalyses to date. Patient will have urinalysis today as routine screening also renew patient's contract which he was given a signed copy of as well. Patient return to clinic in approximately 2 months for follow-up or sooner as necessary. Medication Injected: Med Injected: None Condition at Discharge: Condition at Discharge: Condition at discharge is stable. MANASA ABBOTT MD Nov 11, 2020 11:39
== END | disposition home or self-care (01) ==
LOC: PNCL 10:35
PROVIDERS: ATTEND Anesthesiology
DX: G89.4 Chronic pain syndrome (principal); M54.12 Radiculopathy, cervical region; M54.2 Cervicalgia; G90.513 Complex regional pain syndrome I of upper limb, bilateral; M79.10 Myalgia, unspecified site; M54.81 Occipital neuralgia; J44.9 Chronic obstructive pulmonary disease, unspecified; E11.9 Type 2 diabetes mellitus without complications; E66.9 Obesity, unspecified; G47.30 Sleep apnea, unspecified; Z79.4 Long term (current) use of insulin; Z79.899 Other long term (current) drug therapy; Z87.891 Personal history of nicotine dependence; Z98.890 Other specified postprocedural states; Z72.89 Other problems related to lifestyle; Z88.0 Allergy status to penicillin; Z88.1 Allergy status to other antibiotic agents; Z88.8 Allergy status to other drugs, medicaments and biological substances
CPT/HCPCS: G0463

== ENCOUNTER → 2021-01-06 | Outpatient (CLI) | payer OTHER ==
[2017-11-03 14:18] VITALS: BP 137/61
--- NOTE | 2021-01-06 11:15 | PDOC ---
Progress Note - Pain Clinic Date of Service: DOS: DATE: 01/06/21 TIME: 11:10 Diagnosis: Dx: Chronic pain syndrome Cervicalgia Cervical radiculopathy Complex regional pain syndrome bilateral upper extremities Myofascial pain Occipital neuralgia History or Present Illness: HPI: 55-year-old male returns for follow-up status post medication management with both methadone and oxycodone also patient taking Lyrica and trazodone as well as baclofen. Patient reports he been on a very stable regimen with the medications with good reduction in pain by about 70 to 75% in the neck upper back shoulders mid back low back bilateral upper extremities and bilateral lower extremities patient reports still significant significant pain in these regions with aching sharp dull pain in the base the neck and shoulders tightness shooting in the upper extremities tingling burning in the low back as well as stabbing can be ra diating can be severe with activity level patient has a very good ability to estimate what activities may exacerbate the pain and avoid those if possible. Patient reports it wakes him from sleep about once every 3 hours or so most nights with trazodone does help him to sleep to some extent. Patient reports pain is 8 on scale 10 is worse over the past week 7 on average 6 its least is a 7 today. Patient reports no new motor or sensory deficits no significant side effects with the medications. Physical Exam: VS: Blood pressure is 150/75 pulse 61 respirations 18 temperature is 99.0 F height is 6 feet 3 inches weight is 289 pounds PE: PHYSICAL EXAMINATION: GENERAL: The patient is awake, alert, oriented, appropriate, very pleasant demeanor HEENT: Shows normocephalic, atraumatic. Extraocular movements are intact and symmetrical. Oral cavity: Mucous membranes moist and pink. Dentition is intact. NECK: Shows anterior throat supple without palpable lymphadenopathy noted. Swallow reflex symmetrical. CHEST: Shows normal on inspection. Breath sounds are clear bilaterally, no rales rhonchi or wheezes. HEART: Shows S1, S2 clear. No murmurs auscultated. ABDOMEN: Soft, nontender, nondistended, obese. No palpable organomegaly is noted. BACK: Shows spine grossly in the midline. Normal-appearing cervical lordotic curvature. Cervical paraspinous muscles show symmetrical with inspection with palpation some significant tenderness throughout the upper middle lower d istribution the paraspinous muscles bilaterally. Patient shows a guarded rotation of motion with both extension as well as right left lateral rotation but better with forward flexion of the cervical spine. There is slightly increased thoracic kyphosis, some minor flattening of the lumbar lordotic curvature. Lumbar paraspinous muscles show symmetrical on inspection, on palpation shows some moderate tenderness diffusely throughout the upper, middle and lower distribution of the paraspinous muscles bilaterally and also into the lower thoracic paraspinous musculature, firm and tender bilaterally but without radiation of pain. The patient has good rotational motion of the lumbar spine, both laterally as well as extension and flexion without significant difficulty. Moderate tenderness over the spinous processes, sacrum or sacroiliac regions. EXTREMITIES: Lower extremities show deep tendon reflexes 1+ in the patellar and tendo calcaneus tendons. Motor exam is 4 on a scale of 5 with right dorsiflexion, extension, quadriceps and hamstring flexion and 4/5 on the left. Peripheral pulses are 1+ posterior tibial. No peripheral edema is noted bilaterally. Lower extremities are warm and dry to touch, equal in color and appearance. Upper extremities show deep tendon reflexes 2+ in the bicep and tricep tendons motor exam is strong with proximal 4 to scale 5 jack machine operator strength bicep and tricep flexion but symmetrical peripheral pulses are 2+ radial. SKIN: Shows warm and dry, good turgor. No edema. No sores, rashes or bruising throughout. Procedure: Procedure: Options were discussed with the patient. Patient chart reviews his current medication regimen updated current review of systems updated today as well. We will refill patient's medication both methadone as well as oxycodone trazodone baclofen and Lyrica with instructions side effects aware of discussed each of the medications. Patient is been on appropriate and consistent level of medication has had appropriate K tracts reporting as well as appropriate urinalyses to date and we will make this for 2-month refill prescription. Patient will return to clinic in approximate 2 months or sooner as necessary. Medication Injected: Med Injected: None Condition at Discharge: Condition at Discharge: Condition at discharge is stable. MANASA ABBOTT MD Jan 06, 2021 11:15
== END | disposition home or self-care (01) ==
LOC: PNCL 09:47
PROVIDERS: ATTEND Anesthesiology
DX: G89.4 Chronic pain syndrome (principal); M54.2 Cervicalgia; M54.12 Radiculopathy, cervical region; G90.513 Complex regional pain syndrome I of upper limb, bilateral; M79.18 Myalgia, other site; M54.81 Occipital neuralgia; J44.9 Chronic obstructive pulmonary disease, unspecified; E66.9 Obesity, unspecified; E11.9 Type 2 diabetes mellitus without complications; Z87.891 Personal history of nicotine dependence; Z79.4 Long term (current) use of insulin; Z79.899 Other long term (current) drug therapy; Z98.890 Other specified postprocedural states; Z88.0 Allergy status to penicillin; Z88.1 Allergy status to other antibiotic agents; Z88.8 Allergy status to other drugs, medicaments and biological substances
CPT/HCPCS: 99212; G0463

== ENCOUNTER → 2021-03-03 | Outpatient (CLI) | payer OTHER ==
[2017-11-03 14:18] VITALS: BP 137/61
[~2021-03-03] MED LIST changes: +CALC250T PO; +FERR-36 PO; +MECO10005 PO; +MULT-246 PO; +VENL75TA PO
--- NOTE | 2021-03-03 13:01 | PDOC ---
Progress Note - Pain Clinic Date of Service: DOS: DATE: 03/03/21 TIME: 12:58 Diagnosis: Dx: Chronic pain syndrome Cervicalgia with cervical radiculopathy Complex regional pain syndrome bilateral upper extremities Myofascial pain Spinal cord stimulator, cervical History or Present Illness: HPI: 55-year-old male returns to follow-up status post medication management with both methadone and oxycodone patient also taking trazodone baclofen and Lyrica. Patient reports he is doing fairly well with a very stable regimen with the medications about 70% improvement overall. Patient reports no significant side effects with the medication. Patient reports pain base of neck and shoulders upper back left and the right shoulder and arm low back mid back as well as bilateral lower extremities with some increased activity the pain is exacerbated. Patient reports has not been very active lately and the pain is be en fairly well controlled. Patient reports still difficulty sleeping at night with the trazodone does help to some extent. Patient rates his pain as a 9 on scale 10 is worse over the past week 7 on average 7 its least and is a 7 today. Patient reports no new motor or sensory deficits no new bowel or bladder incontinence or other complaints. Physical Exam: VS: Blood pressure is 130/70 pulse 70 respirations 16 temperature 98.6 3 Fahrenheit weight is 296 pounds PE: PHYSICAL EXAMINATION: GENERAL: The patient is awake, alert, oriented, appropriate, very pleasant demeanor HEENT: Shows normocephalic, atraumatic. Extraocular movements are intact and symmetrical. Full laura and mustache. Oral cavity: Mucous membranes moist and pink. Dentition is intact. NECK: Shows anterior throat supple without palpable lymphadenopathy noted. S wallow reflex symmetrical. CHEST: Shows normal on inspection. Breath sounds are clear bilaterally, no rales rhonchi wheezes auscultated. HEART: Shows S1, S2 clear. No murmurs auscultated. ABDOMEN: Soft, nontender, nondistended, obese. No palpable organomegaly is noted. No rebound or guarding demonstrated. BACK: Shows spine grossly in the midline. Normal-appearing cervical lordotic curvature. Cervical paraspinous muscles show symmetrical inspection with palpation some significant tenderness throughout the upper middle lower decrease the paraspinous muscles but without specific trigger points asymmetry or atrophy. There is increased thoracic kyphosis, some flattening of the lumbar lordotic curvature. Lumbar paraspinous muscles show symmetrical on inspection, on palpation shows some moderate tenderness diffusely throughout the upper, middle and lower distribution of the paraspinous muscles, but without specific trigger points, without radiation of pain. The patient has good rotational motion of the lumbar spine, both laterally as well as extension and flexion without significant difficulty. EXTREMITIES: Lower extremities show deep tendon reflexes 1+ in the patellar and tendo calcaneus tendons. Motor exam is 4 on a scale of 5 with right dorsiflexion, extension, quadriceps and hamstring flexion and 4/5 on the left. Peripheral pulses are 1+ posterior tibial. No peripheral edema is noted bilaterally. Lower extremities are warm and dry to touch, equal in color and appearance. Upper extremity show deep tendon reflexes 2+ bicep and tricep tendons, motor exam is strong with 4 out of 5 clinic charge nurse strength bicep and tricep flexion and are symmetrical. Peripheral pulses are 2+ radial bilaterally. SKIN: Shows warm and dry, good turgor. No edema. No sores, rashes or bruising throughout. Procedure: Procedure: Options were discussed with the patient. Patient's old chart was reviewed his his current medication regimen updated current review of systems updated today as well. We will refill patient's medication methadone oxycodone as well as trazodone and Lyrica as well as baclofen. Patient was given instructions well side effects be aware of each of the medications. Patient is had appropriate K tracks reporting as well as appropriate urinalyses to date and we will make this a 2-month refill prescription. Patient will return to the clinic in approximate 2 months or sooner if necessary. Medication Injected: Med Injected: None Condition at Discharge: Condition at Discharge: Condition at discharge is stable. MANASA ABBOTT MD March 03, 2021 13:01
== END | disposition home or self-care (01) ==
LOC: PNCL 09:59
PROVIDERS: ATTEND Anesthesiology
DX: G90.513 Complex regional pain syndrome I of upper limb, bilateral (principal); G89.4 Chronic pain syndrome; M54.12 Radiculopathy, cervical region; M79.18 Myalgia, other site; J44.9 Chronic obstructive pulmonary disease, unspecified; E66.9 Obesity, unspecified; E11.9 Type 2 diabetes mellitus without complications; G47.30 Sleep apnea, unspecified; Z79.4 Long term (current) use of insulin; Z79.899 Other long term (current) drug therapy; Z98.890 Other specified postprocedural states; Z88.0 Allergy status to penicillin; Z88.1 Allergy status to other antibiotic agents; Z88.8 Allergy status to other drugs, medicaments and biological substances
CPT/HCPCS: G0463

== ENCOUNTER → 2021-04-28 | Outpatient (CLI) | payer OTHER ==
[2017-11-03 14:18] VITALS: BP 137/61
[~2021-04-28] MED LIST changes: -DOCU-150 PO; +DOCU-158 PO; +PREG150C PO
--- NOTE | 2021-04-28 10:47 | PDOC ---
Progress Note - Pain Clinic Date of Service: DOS: DATE: 04/28/21 TIME: 10:42 Diagnosis: Dx: Chronic pain syndrome Cervicalgia Cervical radiculopathy Complex regional pain syndrome bilateral upper extremities Fascial pain Occipital neuralgia Spinal cord stimulator, cervical History or Present Illness: HPI: 55-year-old male returns for follow-up status post medication management with both methadone Percocet and baclofen as well as Lyrica. Patient reports he is doing fairly well with the pain but he is having some significant depression which is worsening he is seeing a psychiatrist also has been on 2 medications for this reports he is only been out of the house once in the past 2 weeks and is having some significant depression at this time. Patient reports has difficulty with sleeping he is able to keep his appetite is been eating by his report patient reports his pain the base the neck shoulders upper back mid back low back and the lower extremities as well as headaches rated as a 9-10 on scale 10 is worse over the past week 8-9 on average and 8 its least is an 8 today patient reports aching sharp dull tight shooting cramping stabbing burning tingling radiating constant and severe. Patient reports no significant medication side effects at this time and reports that he is fairly well controlled with the spinal cord stimulator as well as the medications to about a 70% level with the pain. Physical Exam: VS: Blood pressure is 120/75 pulse 57 respirations 16 temperature 98.7 F height is 6 foot 4 inches weight is 301 pound PE: PHYSICAL EXAMINATION: GENERAL: The patient is awake, alert, oriented, appropriate, very pleasant in demeanor HEENT: Shows normocephalic, atraumatic. Extraocular movements are intact and symmetrical. Oral cavity: Mucous membranes moist and pink. Dentition is intact. NECK: Shows anterior throat supple without palpable lymphadenopathy noted. Swallow reflex symmetrical. CHEST: Shows normal on inspection. Breath sounds are clear bilaterally, distant but no rales rhonchi or wheeze also. HEART: Shows S1, S2 clear. No murmurs auscultated. ABDOMEN: Soft, nontender, nondistended, obese. No palpable organomegaly is noted. No rebound or guarding demonstrated. BACK: Shows spine grossly in the midline. Normal-appearing cervical lordotic curvature. Cervical paraspinous muscles show symmetrical with inspection on palpation some moderate tenderness diffusely bilaterally in the upper middle lower distribution paraspinous muscle as well as in the superior medial trapezius bilaterally. Patient shows good rotation motion however the cervical spine including extension flexion with some guarding with extension but not with forward flexion. There is slightly increased thoracic kyphosis, some minor flattening of the lumbar lordotic curvature. Lumbar paraspinous muscles show symmetrical on inspection, on palpation shows some moderate tenderness diffusely throughout the upper, middle and lower distribution of the paraspinous muscles, but without specific trigger points, without radiation of pain. The patient has good rotational motion of the lumbar spine, both laterally as well as extension and flexion without significant difficulty. No tenderness over the spinous processes, sacrum or sacroiliac regions. EXTREMITIES: Lower extremities show deep tendon reflexes 1+ in the patellar and tendo calcaneus tendons. Motor exam is 4 on a scale of 5 with right dorsiflexion, extension, quadriceps and hamstring flexion and 4/5 on the left. Peripheral pulses are 1 posterior tibial. No peripheral edema is noted bilaterally. Lower extremities are warm and dry to touch, equal in color and appearance. Upper extremity show deep tendon reflexes 2+ in the bicep tricep tendons, motor exam is 4 to scale 5 equal and symmetrical photovoltaic solar cell designer strength bicep and tricep flexion. Pulses are 2+ radial. SKIN: Shows warm and dry, good turgor. No edema. No sores, rashes or bruising throughout. Procedure: Procedure: Options were discussed with the patient. Patient chart reviewed his current medication regimen updated current view systems updated today as well. We will refill patient's Percocet as well as methadone and Lyrica loss baclofen for a 1 month refill electronically prescribed today. Patient will contact the clinic in approximate 1 month if no changes for a refill authorization at that time. Patient given instructions well side effects aware of each of the medications. Patient had appropriate K tracks report as well as appropriate urinalyses to date. Patient follow-up as scheduled. Medication Injected: Med Injected: None Condition at Discharge: Condition at Discharge: Condition at discharge is stable. MANASA ABBOTT MD Apr 28, 2021 10:47
== END | disposition home or self-care (01) ==
LOC: PNCL 09:46
PROVIDERS: ATTEND Anesthesiology
DX: G89.4 Chronic pain syndrome (principal); M54.2 Cervicalgia; M54.12 Radiculopathy, cervical region; G90.513 Complex regional pain syndrome I of upper limb, bilateral; M54.81 Occipital neuralgia; J44.9 Chronic obstructive pulmonary disease, unspecified; E11.9 Type 2 diabetes mellitus without complications; E66.9 Obesity, unspecified; G47.30 Sleep apnea, unspecified; Z79.4 Long term (current) use of insulin; Z79.899 Other long term (current) drug therapy; Z98.890 Other specified postprocedural states
CPT/HCPCS: 99212; G0463

== ENCOUNTER → 2021-06-23 | Outpatient (CLI) | payer OTHER ==
[2017-11-03 14:18] VITALS: BP 137/61
[~2021-06-23] MED LIST changes: +METH-572 PO; -METH10TA2 PO
--- NOTE | 2021-06-23 10:41 | PDOC ---
Progress Note - Pain Clinic Date of Service: DOS: DATE: 06/23/21 TIME: 10:37 Diagnosis: Dx: Chronic pain syndrome Cervicalgia with cervical radiculopathy Complex regional pain syndrome bilateral upper extremities Myofascial pain Occipital neuralgia History or Present Illness: HPI: 56-year-old male returns for follow-up status post medication management with methadone and oxycodone also taking Lyrica and baclofen as well as trazodone. Patient reports doing fairly well with this with about a 75% improvement in pain overall patient still complains of pain in the base the neck and shoulders as well as the upper back mid back low back and lower extremities most joints in the knees as well as elbows and hands patient reports pain is a 9 to a 10 on scale 10 is worst 8-9 on average 8 its least and is an 8 today patient was tingling burning cramping stabbing aching sharp and dull tight shooting can be radiating constant the base the neck and shoulders upper back mid back as well as low back legs and upper extremities. Patient reports overall though he is doing fairly well and is considering relocating as he is looking at selling his home currently has had some increased activity getting things ready for that but otherwise doing fairly well with medication regimen without significant side effects. Patient reports no bowel or bladder incontinence no motor deficits. Spinal cord stimulator is working well and he is keeping it charged with good paresthesia in the upper extremities. Physical Exam: VS: Blood pressure is 131/63 pulse 63 respirations 18 temperature 98.3 F weight is 307 pounds PE: PHYSICAL EXAMINATION: GENERAL: The patient is awake, alert, oriented, appropriate, very pleasant in demeanor HEENT: Shows normocephalic, atraumatic. Extraocular movements are intact and symmetrical. Oral cavity: Mucous membranes moist and pink. Dentition is intact. NECK: Shows anterior throat supple without palpable lymphadenopathy noted. Swallow reflex symmetrical. CHEST: Shows normal on inspection. Breath sounds are clear bilaterally, distant but no rales rhonchi or wheezes auscultated. HEART: Shows S1, S2 clear. No murmurs auscultated. ABDOMEN: Soft, nontender, nondistended, obese. No palpable organomegaly is noted. BACK: Shows spine grossly in the midline. Normal-appearing cervical lordotic curvature. There is slightly increased thoracic kyphosis, some minor flattening of the lumbar lordotic curvature. Lumbar paraspinous muscles show symmetrical on inspection, on palpation shows some moderate tenderness diffusely throughout the upper, middle and lower distribution of the paraspinous muscles, but without specific trigger points, without radiation of pain. The patient has good rotational motion of the lumbar spine, both laterally as well as extension and flexion without significant difficulty. EXTREMITIES: Lower extremities show deep tendon reflexes 1+ in the patellar and tendo calcaneus tendons. Motor exam is 4 on a scale of 5 with right dorsiflexion, extension, quadriceps and hamstring flexion and []/5 on the left. Peripheral pulses are 1 posterior tibial. No peripheral edema is noted bilaterally. Lower extremities are warm and dry to touch, equal in color and appearance. Upper extremity show deep tendon reflexes 2+ in the bicep tricep tendons, motor exam starting 4 to scale 5 with whipper beater strength bicep tricep flexion but symmetrical peripheral pulses are 2+ radial. SKIN: Shows warm and dry, good turgor. No edema. No sores, rashes or bruising throughout. Procedure: Procedure: Options discussed with the patient. Patient chart reviews his current medication regimen updated current review of systems updated today as well. We will refill patient's methadone as well as oxycodone as he has had appropriate K tracks portables appropriate urinalyses to date also Lyrica and baclofen and trazodone. Patient was given instructions well side effects beware of each of the medications. Patient will return to clinic in approximately 4 weeks as scheduled. Medication Injected: Med Injected: None Condition at Discharge: Condition at Discharge: Condition at discharge is stable. MANASA ABBOTT MD Jun 23, 2021 10:41
== END | disposition home or self-care (01) ==
LOC: PNCL 09:38
PROVIDERS: ATTEND Anesthesiology
DX: G89.4 Chronic pain syndrome (principal); G56.43 Causalgia of bilateral upper limbs; M79.18 Myalgia, other site; M54.81 Occipital neuralgia; E11.9 Type 2 diabetes mellitus without complications; J44.9 Chronic obstructive pulmonary disease, unspecified; G47.30 Sleep apnea, unspecified; E66.9 Obesity, unspecified; Z79.899 Other long term (current) drug therapy; Z98.890 Other specified postprocedural states; Z88.0 Allergy status to penicillin; Z88.1 Allergy status to other antibiotic agents; Z88.8 Allergy status to other drugs, medicaments and biological substances
CPT/HCPCS: 99212; G0463

== ENCOUNTER → 2021-08-02 | Outpatient (CLI) | payer OTHER ==
[2017-11-03 14:18] VITALS: BP 137/61
[~2021-08-02] MED LIST changes: -LISI1TAB20 PO; +LISI1TAB39 PO
--- NOTE | 2021-08-02 14:53 | NUR ---
Pt. called clinic requesting his pain meds be E-scribed by Dr. Zhang. Returned pts call. Verified meds he needed refilled. Methadone, oxycodone, and Lyrica Escribed by Dr. Zhang to pts pharmacy after speaking by phone. Baclofen Called into pts pharmcy. Pts. denies no new health issues or side effects from narcotics. Constipation is controlled with Miralax. Pain level 4/10. Pts. next appt naren. Steven Dewitt RN
--- NOTE | 2021-08-02 14:55 | PDOC ---
Progress Note - Pain Clinic Date of Service: DOS: DATE: 08/02/21 TIME: 14:53 Diagnosis: Dx: Chronic pain syndrome Cervical radiculopathy Complex regional pain syndrome bilateral upper extremities Myofascial pain Occipital neuralgia History or Present Illness: HPI: Telemedicine visit today via telephone with patient date of used for identifying purposes as well as full name for identification, total time spent 12 minutes 56-year-old male via telemedicine visit today for medication evaluation and refill patient has been very stable on his current medication regimen is also had appropriate K tracks reporting as well as it appropriate urinalyses to date. Patient taking methadone as well as Percocet for breakthrough pain Lyrica and baclofen for muscle relaxation and neurogenic pain. Patient reports no side effects with the medication is staying hydrated no constipation or other complaints at this time. As patient has had appropriate K tracks reporting urinalyses to date we will electronically prescribe these medications for 1 month. Patient will return to clinic in approximate 4 weeks as scheduled. MANASA ABBOTT MD Aug 02, 2021 14:55
== END | disposition home or self-care (01) ==
LOC: PNCL 09:43
PROVIDERS: ATTEND Anesthesiology
DX: G89.4 Chronic pain syndrome (principal); M54.12 Radiculopathy, cervical region; G90.513 Complex regional pain syndrome I of upper limb, bilateral; M79.18 Myalgia, other site; M54.81 Occipital neuralgia; J44.9 Chronic obstructive pulmonary disease, unspecified; G47.30 Sleep apnea, unspecified; E66.9 Obesity, unspecified; E11.9 Type 2 diabetes mellitus without complications; Z79.4 Long term (current) use of insulin; Z79.899 Other long term (current) drug therapy; Z98.890 Other specified postprocedural states; Z88.0 Allergy status to penicillin; Z88.1 Allergy status to other antibiotic agents; Z88.8 Allergy status to other drugs, medicaments and biological substances
CPT/HCPCS: 99212; G0463

== ENCOUNTER → 2021-08-19 | Outpatient (CLI) | payer OTHER ==
[2017-11-03 14:18] VITALS: BP 137/61
--- NOTE | 2021-08-19 11:13 | PDOC ---
Progress Note - Pain Clinic Date of Service: DOS: DATE: 08/19/21 TIME: 11:08 Diagnosis: Dx: Chronic pain syndrome Cervicalgia with cervical radiculopathy Complex regional pain syndrome bilateral upper extremities Myofascial pain Occipital neuralgia History or Present Illness: HPI: 56-year-old male returns for follow-up status post medication management with both methadone and oxycodone also taking Lyrica baclofen and trazodone. Patient reports doing very well with this regimen is been very stable with pain control with about the 75% improvement overall. Patient reports still significant pain base of neck shoulders upper extremities with increased activity as well as mid back and low back patient reports pain is a 9 on scale 10 at worst over the last week 8 on average 7 its least is a 7 today. Patient reports no side effects with medications, and has had appropriate K tracks report as well as appropriate urinalyses to date. Patient reports significant fatigability of the upper extremities with increased activity reaching weightbearing and patient has been moving things out of his basement recently which is exacerbated this to some extent as well as his mid to low back pain but patient reports is nothing that h he cannot prepare for, and the medications are controlling the pain adequately. Physical Exam: VS: Blood pressure is 140/75 pulse is 67 respirations 18 temperature 98.6 F weight is 317 pounds PE: PHYSICAL EXAMINATION: GENERAL: The patient is awake, alert, oriented, appropriate, very pleasant in demeanor HEENT: Shows normocephalic, atraumatic. Extraocular movements are intact and symmetrical. Oral cavity: Mucous membranes moist and pink. Dentition is intact. NECK: Shows anterior throat supple without palpable lymphadenopathy noted. Swallow reflex symmetrical. CHEST: Shows normal on inspection. Breath sounds are clear bilaterally, distant but no rales rhonchi wheezes auscultated. HEART: Shows S1, S2 clear. No murmurs auscultated. ABDOMEN: Soft, nontender, nondistended, obese. No palpable organomegaly is noted. BACK: Shows spine grossly in the midline. Normal-appearing cervical lordotic curvature. Cervical paraspinous muscles show symmetrical with inspection, on palpation some diffuse tenderness throughout the upper middle lower decrease the paraspinous muscles bilaterally but without radiation. Patient shows good rotation motion both laterally as well as extension flexion of the cervical spine without significant limitation. There is slightly increased thoracic kyphosis, some flattening of the lumbar lordotic curvature. Lumbar paraspinous muscles show symmetrical on inspection, on palpation shows some moderate tenderness diffusely throughout the upper, middle and lower distribution of the paraspinous muscles, but without specific trigger points, without radiation of pain. The patient has good rotational motion of the lumbar spine, both laterally as well as extension and flexion without significant difficulty. No tenderness over the spinous processes, sacrum or sacroiliac regions. EXTREMITIES: Lower extremities show deep tendon reflexes 1 in the patellar and tendo calcaneus tendons. Motor exam is 4on a scale of 5 with right dorsiflexion, extension, quadriceps and hamstring flexion and 4/5 on the left. Peripheral pulses are 1+ posterior tibial. No peripheral edema is noted bilaterally. Lower extremities are warm and dry to touch, equal in color and appearance. Upper extremity show deep tendon reflexes 2+ in the bicep tricep tendons motor exam strong with adult care manager strength rated 4 out of 5 as is bicep and tricep flexion. SKIN: Shows warm and dry, good turgor. No edema. No sores, rashes or bruising throughout. Procedure: Procedure: Options were discussed with patient. Patient's old chart was reviewed as his current medication regimen updated current view of systems updated today as well. Patient has had appropriate K tracks report as well as appropriate urinalyses to date. We will proceed with refilling patient's medication oxycodone as well as methadone and Lyrica patient was given instructions well side effects aware of each of the medications, patient will follow up in approximately 4 weeks as scheduled. Medication Injected: Med Injected: None Condition at Discharge: Condition at Discharge: Condition at discharge is stable. MANASA ABBOTT MD Aug 19, 2021 11:13
== END | disposition home or self-care (01) ==
LOC: PNCL 09:49
PROVIDERS: ATTEND Anesthesiology
DX: G89.4 Chronic pain syndrome (principal); M54.12 Radiculopathy, cervical region; G90.50 Complex regional pain syndrome I, unspecified; M79.18 Myalgia, other site; M54.81 Occipital neuralgia; J44.9 Chronic obstructive pulmonary disease, unspecified; E66.9 Obesity, unspecified; G47.30 Sleep apnea, unspecified; E11.9 Type 2 diabetes mellitus without complications; Z88.0 Allergy status to penicillin; Z88.6 Allergy status to analgesic agent; Z88.1 Allergy status to other antibiotic agents
CPT/HCPCS: 99212; G0463

== ENCOUNTER → 2021-09-21 | Outpatient (CLI) | payer OTHER ==
[2017-11-03 14:18] VITALS: BP 137/61
--- NOTE | 2021-09-21 16:04 | NUR ---
patient called requesting a refill verified name date of , and pharmacy, patient denies any new meds or medical problems, constipation. patient states his pain level is an 8-10. ktracts verified.
--- NOTE | 2021-09-21 16:11 | PDOC ---
Progress Note - Pain Clinic Date of Service: DOS: DATE: 09/21/21 TIME: 16:09 Diagnosis: Dx: Chronic pain syndrome Cervicalgia with cervical radiculopathy complex regional pain syndrome bilateral upper extremities Myofascial pain Occipital neuralgia History or Present Illness: HPI: Telemedicine visit today with patient identity verified with the full name as well as date of total time spent 14 minutes 56-year-old male via telemedicine visit for medication refill of methadone as well as trazodone baclofen and Lyrica and Percocet. Patient reports doing very well is on a very stable regimen reduces pain by about 70% on most days patient reports has been cleaning his garage over the past few days and this is caused some pain to be increased in the base of neck and shoulder as well as with some headaches but that he expected this with increased activity. Patient reports otherwise no side effects no new deficits or other complaints still complains of pain the base of neck and shoulders upper back mid back and low back with no new bowel or bladder incontinence. Patient has had appropriate K tracks report as well as appropriate urinalyses to date and we will electronically prescribe medication for him methadone Lyrica and Percocet with instructions and side effects were discussed with the medications. Patient will follow up in approximately 4 weeks as scheduled. Physical Exam: PE: MANASA ABBOTT MD Sep 21, 2021 16:11
== END | disposition home or self-care (01) ==
LOC: PNCL 13:12
PROVIDERS: ATTEND Anesthesiology
DX: G89.29 Other chronic pain (principal); M54.12 Radiculopathy, cervical region; G90.513 Complex regional pain syndrome I of upper limb, bilateral; M79.18 Myalgia, other site; M54.81 Occipital neuralgia; E11.9 Type 2 diabetes mellitus without complications; J44.9 Chronic obstructive pulmonary disease, unspecified; G47.30 Sleep apnea, unspecified; E66.9 Obesity, unspecified; Z87.891 Personal history of nicotine dependence; Z79.4 Long term (current) use of insulin; Z79.899 Other long term (current) drug therapy; Z98.890 Other specified postprocedural states; Z88.0 Allergy status to penicillin; Z88.1 Allergy status to other antibiotic agents; Z88.6 Allergy status to analgesic agent; Z88.8 Allergy status to other drugs, medicaments and biological substances
CPT/HCPCS: 99212; G0463

== ENCOUNTER → 2021-10-14 | Outpatient (CLI) | payer OTHER ==
[2017-11-03 14:18] VITALS: BP 137/61
--- NOTE | 2021-10-14 09:59 | PDOC ---
Progress Note - Pain Clinic Date of Service: DOS: DATE: 10/14/21 TIME: 09:53 Diagnosis: Dx: Chronic pain syndrome Cervicalgia with cervical radiculopathy Complex regional pain syndrome bilateral upper extremities Myofascial pain Occipital neuralgia History or Present Illness: HPI: 56-year-old male returns for follow-up status postmedication management with methadone Percocet Lyrica baclofen and trazodone. Patient reports he is doing very well is been a very stable regimen with about a 70 to 75% improvement with the medications without significant side effects. Patient reports still significant pain base of neck shoulders upper back mid back low back bilateral upper extremities as well as low back and lower extremities worse with activity walking standing changing positions reason for sleep evaluate 5 hours or so patient reports his pain is a 9 to a 10 on scale 10 is worst 8-9 on average each night at least is an 8 today patient reports tingling burning cramping stabbing pain in the base neck and shoulders upper extremities also dull alternating with type pain in the low back sharp pains in the lower extremities as well as upper extremities which can be shooting and radiating at times as well severe at times can be constant radiating with activity patient reports that he knows his limitations with activity and can generally control is fairly well has been doing a lot of work at home and has been having some increased pain with this but the pain is still relieved fairly well with the medication regimen he is currently taking. Patient has had no side effects he had appropriate K tracks report as well as appropriate urinalyses to date as well. Physical Exam: VS: Blood pressure is 157/81 pulse 76 respirations 18 temperature 98.6 F weight is 313 pounds PE: PHYSICAL EXAMINATION: GENERAL: The patient is awake, alert, oriented, appropriate, very pleasant and demeanor HEENT: Shows normocephalic, atraumatic. Extraocular movements are intact and symmetrical. Oral cavity: Mucous membranes moist and pink. Dentition is intact. NECK: Shows anterior throat supple without palpable lymphadenopathy noted. Swallow reflex symmetrical. CHEST: Shows normal on inspection. Breath sounds are clear bilaterally, distant but no rales rhonchi wheezes auscultated. HEART: Shows S1, S2 clear. No murmurs auscultated. ABDOMEN: Soft, nontender, nondistended, obese. No palpable organomegaly is noted. BACK: Shows spine grossly in the midline. Normal-appearing cervical lordotic curvature. There is increased thoracic kyphosis, some flattening of the lumbar lordotic curvature. Lumbar paraspinous muscles show symmetrical on inspection, on palpation shows some moderate tenderness diffusely throughout the upper, middle and lower distribution of the paraspinous muscles, but without specific trigger points, without radiation of pain. The patient has good rotational motion of the lumbar spine, both laterally as well as extension and flexion without significant difficulty. EXTREMITIES: Lower extremities show deep tendon reflexes 1+ in the patellar and tendo calcaneus tendons. Motor exam is 4 on a scale of 5 with right dorsiflexion, extension, quadriceps and hamstring flexion and 4/5 on the left. Peripheral pulses are 1+ posterior tibial. No peripheral edema is noted bilaterally. Lower extremities are warm and dry to touch, equal in color and appearance. Upper extremities are deep tendon reflexes 2+ in the bicep tricep tendons, motor exam is 4 on a scale of 5 with cardiopulmonary supervisor strength bicep and tricep flexion. Shoulder shrug is intact with moderate pain with resistance bilaterally this is treated with reduced distance and abduction of the shoulder to 90 degrees bilaterally. SKIN: Shows warm and dry, good turgor. No edema. No sores, rashes or bruising throughout. Procedure: Procedure: Options discussed with the patient. Patient is on chart reviews his current medication regimen updated current review of systems updated today as well. We will refill patient's medication methadone as well as trazodone baclofen oxycodone and Lyrica. Patient given instructions as well as side effects to be aware of with each of medications. Medications will be electronically prescribed. Patient will follow-up in approximate 30 days as scheduled. Medication Injected: Med Injected: None Condition at Discharge: Condition at Discharge: Condition at discharge is stable. MANASA ABBOTT MD Oct 14, 2021 09:59
== END | disposition home or self-care (01) ==
LOC: PNCL 09:23
PROVIDERS: ATTEND Anesthesiology
DX: G89.4 Chronic pain syndrome (principal); M54.12 Radiculopathy, cervical region; G90.513 Complex regional pain syndrome I of upper limb, bilateral; M79.18 Myalgia, other site; M54.81 Occipital neuralgia; J44.9 Chronic obstructive pulmonary disease, unspecified; G47.30 Sleep apnea, unspecified; E11.9 Type 2 diabetes mellitus without complications; E66.9 Obesity, unspecified; Z79.4 Long term (current) use of insulin; Z79.899 Other long term (current) drug therapy; Z98.890 Other specified postprocedural states; Z88.0 Allergy status to penicillin; Z88.1 Allergy status to other antibiotic agents; Z88.6 Allergy status to analgesic agent; Z88.8 Allergy status to other drugs, medicaments and biological substances
CPT/HCPCS: 99212; G0463

== ENCOUNTER → 2021-12-01 | Outpatient (CLI) | payer OTHER ==
[2017-11-03 14:18] VITALS: BP 137/61
[~2021-12-01] MED LIST changes: +PREG100C PO
--- NOTE | 2021-12-01 16:08 | PDOC ---
Progress Note - Pain Clinic Date of Service: DOS: DATE: 12/01/21 TIME: 16:03 Diagnosis: Dx: Chronic pain syndrome Cervicalgia with cervical radiculopathy Complex regional pain syndrome bilateral upper extremities with spinal cord stimulator Myofascial pain Occipital neuralgia History or Present Illness: HPI: D6-year[age] male via telemedicine visit today with full identity verified with full name as well as date of , total time spent 12 minutes 56-year-old male via telemedicine visit today requesting refill of methadone as well as Lyrica and Percocet. Patient reports he is doing very well with the current regimen as well as a spinal cord stimulator which is doing well with keeping charged and stimulated in appropriate fashion. Patient reports no side effects with medication reports is very stable with the regimen with approximate 75% improvement overall. Patient reports still significant pain base of neck and shoulders upper extremity as well as the mid back and low back worse with activity but is able to gauge his activity very accurately as to not exacerbated significantly. Patient has had appropriate K tracks reporting as well as appropriate urinalyses as well to date. We discussed options with the patient, we will refill patient's methadone as well as oxycodone, and Lyrica for a 30-day supply. Patient is given instructions as well as side effects beware of with each of the medications. Medication will be electronically prescribed. Patient will follow up in approximate 30 days as scheduled. Physical Exam: PE: MANASA ABBOTT MD Dec 01, 2021 16:08
--- NOTE | 2021-12-01 16:17 | NUR ---
Patient called states he needs a refill on his medications, verified name and ,Pharmacy, next appointment. Patient denies constipation, new medication, or medical problems.. pain level 8. ktracts is correct
--- NOTE | 2021-12-07 11:35 | FMN ---
PT PROBLEMS Addendum to visit of December 01, 2021 Telemedicine visit via telephone voice only. MANASA ABBOTT MD Dec 07, 2021 11:34
== END | disposition home or self-care (01) ==
LOC: PNCL 15:15
PROVIDERS: ATTEND Anesthesiology
DX: G89.4 Chronic pain syndrome (principal); M54.12 Radiculopathy, cervical region; M79.18 Myalgia, other site; G90.513 Complex regional pain syndrome I of upper limb, bilateral; M54.81 Occipital neuralgia; J44.9 Chronic obstructive pulmonary disease, unspecified; E66.9 Obesity, unspecified; E11.9 Type 2 diabetes mellitus without complications; G47.30 Sleep apnea, unspecified; Z79.899 Other long term (current) drug therapy; Z98.890 Other specified postprocedural states; Z88.0 Allergy status to penicillin; Z88.1 Allergy status to other antibiotic agents; Z88.8 Allergy status to other drugs, medicaments and biological substances
CPT/HCPCS: 99212; G0463

== ENCOUNTER → 2021-12-09 | Outpatient (CLI) | payer OTHER ==
[2017-11-03 14:18] VITALS: BP 137/61
--- NOTE | 2021-12-09 10:41 | PDOC ---
Progress Note - Pain Clinic Date of Service: DOS: DATE: 12/09/21 TIME: 10:38 Diagnosis: Dx: Chronic pain syndrome Cervicalgia with cervical radiculopathy Complex regional pain syndrome bilateral upper extremities Myofascial pain Occipital neuralgia History or Present Illness: HPI: 56-year-old male returns for follow-up status post medication management with methadone as well as oxycodone and Lyrica as well as baclofen. Patient reports has been doing very stable with the medication with about a 70% improvement overall, however has been caring for a move and has been loading boxes and has had his physical activity increase significantly with some increased pain but resting in between and is fairly well controlling it currently. Patient reports still significant pain in the base the neck and shoulders upper back mid back low back as previously patient reports no new deficits reports good function of his spinal cord stimulator with good ability to charge it and maintain output. Patient reports no significant side effects with medications currently. Patient reports he removing in about 6 weeks or so and we will make arrangements for his medical records to travel with him and his bilingual patient support caseworker is setting up a new pain clinic at facility as well as primary care in his new residence area. Physical Exam: VS: Blood pressure is 161/74 pulse 62 respirations 18 temperature is 98.2 F weight is 315 pounds. PE: PHYSICAL EXAMINATION: GENERAL: The patient is awake, alert, oriented, appropriate, very pleasant in demeanor HEENT: Shows normocephalic, atraumatic. Extraocular movements are intact and symmetrical. Oral cavity: Mucous membranes moist and pink. Dentition is intact. NECK: Shows anterior throat supple without palpable lymphadenopathy noted. Swallow reflex symmetrical. CHEST: Shows normal on inspection. Breath sounds are clear bilaterally, no rales rhonchi or wheezes auscultated. HEART: Shows S1, S2 clear. No murmurs auscultated. ABDOMEN: Soft, nontender, nondistended. No palpable organomegaly is noted. BACK: Shows spine grossly in the midline. Normal-appearing cervical lordotic curvature. There is slightly increased thoracic kyphosis, some minor flattening of the lumbar lordotic curvature. Lumbar paraspinous muscles show symmetrical on inspection, on palpation shows some moderate tenderness diffusely throughout the upper, middle and lower distribution of the paraspinous muscles, but without specific trigger points, without radiation of pain. The patient has good rotational motion of the lumbar spine, both laterally as well as extension and flexion without significant difficulty. EXTREMITIES: Lower extremities show deep tendon reflexes 1+ in the patellar and tendo calcaneus tendons. Motor exam is 4 on a scale of 5 with right dorsiflexion, extension, quadriceps and hamstring flexion and 4/5 on the left. Peripheral pulses are 1 posterior tibial. No peripheral edema is noted bilaterally. Lower extremities are warm and dry to touch, equal in color and appearance. Upper extremity show deep tendon reflexes 2+ in the bicep tricep tendons, motor exam strong with care transition mgr strength rated 5 out of 5 as is bicep and tricep flexion. SKIN: Shows warm and dry, good turgor. No edema. No sores, rashes or bruising throughout. Procedure: Procedure: Options were discussed with patient. Patient's old chart reviews his current medication regimen updated current review of systems updated today as well. We will refill patient's methadone as well as Percocet and Lyrica and baclofen as patient is been on a very stable regimen has had appropriate K tracks reporting as well as appropriate urinalyses to date. Patient is given instructions well side effects beware of each of the medications. Patient be given a 1 month refill and will follow up in approximate 30 days as scheduled. Medication Injected: Med Injected: None Condition at Discharge: Condition at Discharge: Condition at discharge is stable. MANASA ABBOTT MD Dec 09, 2021 10:41
== END | disposition home or self-care (01) ==
LOC: PNCL 09:20
PROVIDERS: ATTEND Anesthesiology
DX: G89.28 Other chronic postprocedural pain (principal); G90.513 Complex regional pain syndrome I of upper limb, bilateral; M79.18 Myalgia, other site; M54.12 Radiculopathy, cervical region; M54.81 Occipital neuralgia; J44.9 Chronic obstructive pulmonary disease, unspecified; G47.30 Sleep apnea, unspecified; E66.9 Obesity, unspecified; E11.9 Type 2 diabetes mellitus without complications; Z79.4 Long term (current) use of insulin; Z79.899 Other long term (current) drug therapy; Z98.890 Other specified postprocedural states; Z88.0 Allergy status to penicillin; Z88.1 Allergy status to other antibiotic agents; Z88.6 Allergy status to analgesic agent; Z88.8 Allergy status to other drugs, medicaments and biological substances
CPT/HCPCS: 99212; G0463